=== PATIENT | male | born 1960 | race Caucasian/White ===

== ENCOUNTER → 2017-06-16 16:44 | Outpatient (CLI) | payer OTHER, SELFPAY ==
--- NOTE | 2017-06-16 16:50 | RAD_ITS ---
STUDY: X-RAY - LEFT SHOULDER REASON FOR EXAM: Male, 57 years old. Left shoulder pain. TECHNIQUE: 4 view(s) of the shoulder. COMPARISON: None. FINDINGS: Normal glenohumeral articulation. There is degenerative arthrosis of the acromioclavicular joint without inferior osseous spur formation. Normal acromion. Normal humeral head and visualized proximal humerus. The soft tissue structures are unremarkable. There is no demonstrated fracture. Normal visualized pulmonary apex. RAD/Shoulder min 2 Views IMPRESSION: No acute abnormality. Mild acromioclavicular degenerative disease. Electronically Signed: Prince Gaffney MD at 13:12 EST , Service support ,
== END ==
PROVIDERS: Family Provider Family Medicine; PCP Family Medicine; Visit Provider Anesthesiology Pain Medicine
DX: M25.512 Pain in left shoulder (principal)
CPT/HCPCS: 73030

== ENCOUNTER → 2017-07-26 07:09 | Outpatient (CLI) | payer OTHER, SELFPAY ==
--- NOTE | 2017-07-26 07:10 | MRI_ITS ---
STUDY: MRI LEFT SHOULDER REASON FOR EXAM: Male, 57 years old. Pain TECHNIQUE: Standardized fat and water weighted pulse sequences were obtained in all 3 orthogonal planes. COMPARISON: X-ray 06/16/2017 FINDINGS: There is mild osteoarthritis of the comminuted clavicular joint (image 11/20 coronal proton density fat sat). There is minimal fluid in the subacromion subdeltoid bursa (image 8, 9, 10, 11/20 coronal T2 fat sat). There are mild degenerative changes at the superior posterior glenoid labrum (image 13/22 axial T2, proton density fat sat, 11, 10/20 coronal T2 fat sat). Normal supraspinatus tendon. Normal infraspinatus tendon. Normal subscapularis tendon. Normal teres minor tendon. Normal supraspinatus muscle. Normal infraspinatus muscle. Normal subscapularis muscle. Normal teres minor muscle. Normal glenohumeral articulation. Normal humeral head and visualized proximal humerus. Normal biceps labral complex. Normal intracapsular long biceps tendon. Normal capsulo- ligamentous complex. Normal rotator interval. Normal visualized coracohumeral and coracoacromial ligaments. Normal quadrilateral space. Normal axillary space. Normal deltoid muscle. Normal trapezius muscle. MRI/Upper Ext Joint Only(Routine) IMPRESSION: Mild subacromial subdeltoid bursitis Mild osteoarthritis of the acromioclavicular joint Mild degenerative changes of the glenoid labrum Electronically Signed: Geovany Rose MD at 10:10 EDT Tel , Service support ,
== END ==
PROVIDERS: Family Provider Family Medicine; PCP Family Medicine; Visit Provider Orthopaedic Surgery
DX: M75.102 Unspecified rotator cuff tear or rupture of left shoulder, not specified as traumatic (principal)
CPT/HCPCS: 73221

== ENCOUNTER 2017-08-21 08:24 | Outpatient (RCR) | payer OTHER, SELFPAY ==
--- NOTE | 2017-08-21 09:22 | HP.PTEVAL ---
Patient's Visit Information TWIN BLUNT is a 57 year old M referred to Physical Therapy by Zamzam Simpson DO with a diagnosis of Left Frozen Shoulder. 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 Wasn't able to sleep on the left side. 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 Project at [employer] and has arm was very painful. Called Dr. Brink who did x-rays which was normal- then was diagnosed with frozen shoulder. Did therapy and had mri which was negative for tear. Finished therapy last Friday- will continue bands and ROM independently. Knows exactly what he is looking at but thinks dry needling will help to push him over the edge. PMHx: reflux, Meds: omeprozol - Objective Posture: good throughout session. Palpation: tender along upper trap and levator insertion to the scapula with palpable trigger points. ROM: Cervical: wNL, Shoulder: flexion: 170 degrees, Abd: 165 degrees, IR: belt line, ER: 50 degrees. Elbow: WNL. Strength: 5/5 throughout Scap: fair plus - Goals Goal 1:: Patient will report 0/10 pain Goal Time Frame: 4-6 Weeks - Rehabilitation Potential Physical Therapy Diagnosis: Patient presents with hypomobility- he has decrease ROM, strength and muscular endurance leading to increased pain Rehabilitation Potential: Good - Anticipated Interventions Manual Therapy Techniques to Include: Functional dry needling Thank you for the opportunity to evaluate your patient. For Medicare and Medicare HMO plans, please review the plan of care and approve it. It will need to be FAXED BACK to us at [phone] for Medicare purposes. Please let me know if there are questions or concerns regarding this plan of care. Physician Signature: Date:
--- NOTE | 2018-01-19 16:32 | HP.PT.NRP ---
HP - Discharge Summary (1) - Patient Information TWIN BLUNT was seen in my office for initial evaluation on 08/21/17. The following Plan of Care was established for this patient: Initial Frequency: 1x/Week Initial Duration: 4 Weeks - Anticipated Interventions Manual Therapy Techniques to Include: Functional dry needling This patient was last seen in our office . Pertinent comments regarding their Physical therapy will appear below: Patient has not attended physical therapy in over 12 weeks and is appropriate for d/c. At this point I will be discontinuing this patient from physical therapy. I would be happy to see this patient again in the future if found appropriate by the physician. Thank you! Kaylee Marshall
== END 2017-08-21 19:00 | disposition home or self-care (01) ==
LOC: PT 08:24
PROVIDERS: Family Provider Family Medicine; PCP Family Medicine; Visit Provider Orthopaedic Surgery
DX: M75.02 Adhesive capsulitis of left shoulder (principal); M75.52 Bursitis of left shoulder

== ENCOUNTER → 2017-10-03 14:00 | Outpatient (CLI) | payer OTHER, SELFPAY ==
--- NOTE | 2017-10-03 14:00 | DT_ITS ---
This patient was seen during an EMR downtime September 29, 2017 - October 06, 2017. This patient may have a combination of paper and electronic documentation or all paper documentation. All documentation is viewable within the e-chart portion of [employer] for each patient visit.
--- NOTE | 2017-10-03 14:20 | RAD_ITS ---
STUDY: X-RAY CHEST REASON FOR EXAM: Male, 57 years old. Cough. TECHNIQUE: PA and lateral views of the chest. COMPARISON: None. FINDINGS: The lungs are clear and expanded. There is no demonstrated pleural abnormality. Normal size heart. Normal mediastinum and art. Normal visualized pulmonary arteries. Normal visualized aortic arch and descending thoracic aorta. Normal visualized thoracic spine. Normal visualized ribs, clavicles, and shoulders. There is no demonstrated abnormality of the visualized soft tissue structures of the upper abdomen. RAD/Chest PA and Lateral IMPRESSION: Normal x-ray examination of the chest. Electronically Signed: Ramy Petty MD at 17:42 EDT , Service support ,
== END ==
LOC: MTRAD 14:05 → RAD 14:14
PROVIDERS: Family Provider Family Medicine; PCP Family Medicine; Visit Provider Family Medicine
DX: R05 Cough (principal)
CPT/HCPCS: 71046

== ENCOUNTER → 2018-11-25 09:54 | Outpatient (CLI) | payer OTHER, SELFPAY ==
[2017-06-26 09:12] VITALS: BMI 26.1
--- NOTE | 2018-11-25 10:05 | RAD_ITS ---
STUDY: X-RAY - CERVICAL SPINE REASON FOR EXAM: Male, 58 years old. Pain. Stiffness. TECHNIQUE: 5 view(s) of the cervical spine were obtained. COMPARISON: None. FINDINGS: No acute fracture, dislocation or osseous destruction. Cervical lordosis preserved. No significant scoliosis. Mild neural foraminal narrowing at the mid cervical spine. Atlantoaxial articulation intact. Odontoid intact. Lateral masses well aligned. No significant endplate spondylosis. Intervertebral disc heights preserved. No spondylolisthesis. No significant soft tissue swelling. Normal lung apices. RAD/Cerv Spine 4 or 5 Views IMPRESSION: Cervical spine intact Mild neural foraminal narrowing Electronically Signed: Oleg Dukes DO at 10:18 EDT Tel , Service support ,
[2018-11-25 13:01] LABS: ALB/GLOB Ratio 1.2 RATIO (0.9-2.4); AST(SGOT) 23 U/L (15-37); Alanine Aminotransfer ALT/SGPT 38 U/L (16-61); Albumin, Serum 4.1 g/dL (3.2-5.0); Alkaline Phosphatase 94 U/L (45-117); Anion Gap 5 (5-15); BUN 24 mg/dL (7-18); BUN/Creat Ratio 19.2 RATIO (10-20); Calcium,Total 9.1 mg/dL (8.5-10.1); Chloride 108 mmol/L (98-107); Cholesterol 173 mg/dL (200); Creatinine, Serum 1.25 mg/dL (0.70-1.30); EST Glomerular Filtration Rate 63 mL/min (>60); Est Glom Filt Rate - Afr Amer 76 mL/min (>60); Globulin 3.4 g/dL (2.2-4.2); Glucose 88 mg/dL (74-106); High Density Lipoprotein 62 mg/dL; Potassium 4.2 mmol/L (3.5-5.1); Protein, Total 7.5 g/dL (6.4-8.2); Sodium Level 141 mmol/L (136-145); Triglycerides 96 mg/dL; Very Low Density Lipoprotein 19 mg/dL (5-40)
== END ==
PROVIDERS: Family Provider Family Medicine; PCP Family Medicine; Referring Provider Nurse Practitioner Family; Visit Provider Nurse Practitioner Family
DX: M54.2 Cervicalgia (principal); Z13.220 Encounter for screening for lipoid disorders
CPT/HCPCS: 36415; 72050; 80053; 80061

== ENCOUNTER 2018-12-09 07:49 | Outpatient (RCR) | payer OTHER, SELFPAY ==
--- NOTE | 2018-12-09 08:39 | HP.PTEVAL_ITS ---
Patient's Visit Information TWIN BLUNT is a 58 year old M referred to Physical Therapy by LISA Sosa with a diagnosis of Neck Pain. Date of Evaluation: 12/09/18 Physical Therapist: Kaylee Marshall DPT - Visit Plan Frequency: 1x/Week Duration: 1 Week Plan: Patient was given HEP of Upper Trap Stretching, Levator Stretching, Scalenes Stretching- encouraged to continue I and call if questions or concerns. - Subjective Findings: 6 weeks ago he noticed a rubber band stretching into the back of his head. He plays a lot of golf and thought that was what it was. It seems to have settled into the neck itself. Then started to get sore more in the gland area and it was changing- so he went to the MD to get checked out. Went to PCP who gave him a physical exam and told him it was his SCM issues. He had an x- ray which showed slight narrowing. 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 He has discomfort and stretch/pull on the right hand side when he turns to the left. He finished the Predisone and takes a Flexeril before bed. Had blood work as well and that came back normal. Worst: 2-3/10 just when he turns to the left reports its a pull sensation. No N/T in the arms. Most of the time he is painfree. Sleep is not distrubed- left side due to reflux. 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 Golf- right hand dominate. looks to the left when he pulls through. Little more stress through the last few months but no major life trauma. He went through a left frozen shoulder last year and he gets knots in his scapula. When that knot gets worse when he is more stressed. No LUCIANO, blurred vision, dizziness. PMHx: none Meds: Flexeril PRN, omperazol. - Objective Posture: good throughout session. Palpation: tender along upper trap and cervical paraspinals on the right. Increased trigger points throughout scapula along medial border. ROM: Finger/Wrist/Elbow/Hand: WNL. Cervical: flexion: chin to chest, Extn: diminished by 25%, Rotation to the left: diminished by 10% with discomfort at end range, Rotation right: WNL, SB bilateral: WNL. Strength: UE: 5/5 bilaterally Scap: fair plus, Cervical: 5/5. Flex: UT: moderate, Levator: moderate. Sensation: WNL. Special Test: distraction: no change in s/s - Goals Goal 1:: Patient will be I with HEP Goal Time Frame: 1 Week - Rehabilitation Potential Physical Therapy Diagnosis: Patient presents with increased muscle tightness of the left cervical spine leading to increased pain with trurning his head to the left. Rehabilitation Potential: Excellent - Anticipated Interventions Patient/Client Instruction: Educate patient on: Benefits of Fitness Program Therapeutic Exercise to Include: Body mechanics, Postural training, Flexibilty training For the Purpose of:: To improve muscle performance and motor function Thank you for the opportunity to evaluate your patient. For Medicare and Medicare HMO plans, please review the plan of care and approve it. It will need to be FAXED BACK to us at [phone] for Medicare purposes. For Medicare only, by signing this I certify the plan of care. Please let me know if there are questions or concerns regarding this plan of care. Physician Signature: Date:
--- NOTE | 2019-01-05 11:23 | HP.PT.NRP ---
HP - Discharge Summary (1) - Patient Information TWIN BLUNT was seen in my office for initial evaluation on 12/09/18. The following Plan of Care was established for this patient: Initial Frequency: 1x/Week Initial Duration: 1 Week - Anticipated Interventions Patient/Client Instruction: Educate patient on: Benefits of Fitness Program Therapeutic Exercise to Include: Body mechanics, Postural training, Flexibilty training For the Purpose of:: To improve muscle performance and motor function This patient was last seen in our office . Pertinent comments regarding their Physical therapy will appear below: At this point I will be discontinuing this patient from physical therapy. I would be happy to see this patient again in the future if found appropriate by the physician. Thank you! JULIANO BatistaT
== END 2018-12-09 19:00 | disposition home or self-care (01) ==
LOC: PT 07:49
PROVIDERS: Family Provider Family Medicine; PCP Family Medicine; Referring Provider Nurse Practitioner Family; Visit Provider Nurse Practitioner Family
DX: M54.2 Cervicalgia (principal)
CPT/HCPCS: 97110; 97161

== ENCOUNTER → 2019-09-03 09:48 | Outpatient (CLI) | payer OTHER, SELFPAY ==
--- NOTE | 2019-09-03 09:54 | US_ITS ---
STUDY: THYROID ULTRASOUND REASON FOR EXAM: Male, 59 years old. PALP LUMP ON RT NECK-THYROID NODULE VERSES ADENOPATHY TECHNIQUE: Ultrasound evaluation of the thyroid was performed with real-time and static calderón-scale imaging. COMPARISON: None. FINDINGS: RIGHT LOBE: The right lobe of the thyroid gland is enlarged and measures 5.2 cm x 1.7 cm x 1.9 cm. There is a homogeneous echotexture. There is an 8 mm x 7 mm x 7 mm solid hypoechoic nodule in the lower pole of the right lobe. LEFT LOBE: The left lobe of the thyroid gland is enlarged and measures 5.9 cm x 2.9 cm x 2.6 cm. There is a homogeneous echotexture. 3 hypoechoic solid nodules are seen in the right lobe. The largest measures 3.3 cm x 2.8 cm x 1.7 cm. A biopsy is recommended for further evaluation. ISTHMUS: The isthmus measures 4 mm. There is a 1.8 cm x 1.1 cm x 0.5 cm benign-appearing lymph node in the right side of the neck. This corresponds to the palpable abnormality. US/Thyroid IMPRESSION: Enlargement of both lobes of the thyroid. Bilateral solid nodules. Dominant nodule in the left lobe measuring 3.3 cm x 2.8 cm by 1.7 cm. A biopsy is recommended for further evaluation. The palpable abnormality in the right subapical region corresponds to a 1.8 cm x 1.1 cm x 0.5 cm benign appearing lymph node. Electronically Signed: Bernabe Floyd, at 10:49 EDT , Service support ,
== END ==
PROVIDERS: PCP Family Medicine; Referring Provider Family Medicine; Visit Provider Family Medicine
DX: R22.1 Localized swelling, mass and lump, neck (principal)
CPT/HCPCS: 76536

== ENCOUNTER → 2019-09-06 14:30 | Outpatient (CLI) | payer OTHER, SELFPAY ==
--- NOTE | 2019-09-06 | FLU_PTH ---
PATIENT: TWIN BLUNT LOC: [facility] U#:[id number] AGE/SX: 65/M ROOM: RE09/06/[address]: Dr. Oleg Rivera MD : 1960 BED: DIS: SPEC #: [id number] RECD: 09/06/19 17:30 STATUS: CAROLYN ERICH #: [id number] KRISTI: 09/06/19 00:[address]: Oleg Rivera DEPT: CYTOLOGY RECD BY: Jose Antunez ENTERED: 09/07/19 08:42 SP TYPE: Fluid OTHR DR: Dr. Gato Holman DO Tissues: Thyroid gland, NOS Procedures: Special Stain Group II Surgery Specimen Level IV Cytospin Fluid HEADER OPERATION: Fine needle aspiration PRE-OP DIAGNOSIS: Nontoxic multinodular goiter TISSUE SUBMITTED: Right thyroid nodule aspiration for cytology DIAGNOSIS CYTOLOGY Right thyroid nodule, FNA (cytospin and cell block): Consistent with benign follicular nodule. Adequate for evaluation. See comment. SVITLANA:keo 09/08/19 COMMENT Correlation with clinical, radiologic findings and appropriate follow up are necessary. CYTOLOGY STUDY Slides are reviewed. CYTOLOGY GROSS Received is 35 ml of red bloody fluid labeled with the patient's name and and designated per the requisition as right thyroid nodule. Submitted for cytology preparation including cell block. / keo 09/07/19 TC:5 CPT: 25485, 05407
== END ==
PROVIDERS: PCP Family Medicine; Referring Provider Otolaryngology; Visit Provider Otolaryngology
DX: E04.2 Nontoxic multinodular goiter (principal)
CPT/HCPCS: 88108; 88305; 88313

== ENCOUNTER → 2021-01-24 09:49 | Outpatient (CLI) | payer OTHER, SELFPAY ==
--- NOTE | 2021-01-24 09:53 | US_ITS ---
STUDY: THYROID ULTRASOUND REASON FOR EXAM: Male, 60 years old. Nontoxic multinodular goiter. TECHNIQUE: Ultrasound evaluation of the thyroid was performed with real-time and static calderón-scale imaging. COMPARISON: Comparison is made with prior examination dated 09/03/2019. FINDINGS: RIGHT LOBE: The right lobe of the thyroid gland is enlarged and measures 5.4 cm x 1.3 cm x 1.6 cm. There is a homogeneous echotexture. 4 small hypoechoic and cystic nodules are seen in the right lobe. The largest measures 1.2 cm x 0.8 times by 1 cm. This is within the mid pole. 2 nodules are also seen in the lower pole of the right lobe. The larger measuring 1.2 cm x 1 cm x 0.7 cm. LEFT LOBE: The left lobe of the thyroid gland is enlarged and measures 5.5 cm x 3.3 cm x 2.7 cm. There is a homogeneous echotexture. A dominant solid and cystic nodule measuring 3.2 cm x 2.7 cm x 2.1 cm is seen in the midpole. This is essentially unchanged. Also evidence of a 2.5 cm x 2.1 cm x 1.7 cm complex solid and cystic nodule in the mid inferior pole of the left lobe. There is also evidence of a 1.8 cm x 1.9 cm x 1.5 cm complex nodule in the lower pole. ISTHMUS: The isthmus measures 2.3 mm. The regional lymph nodes are normal. US/Thyroid IMPRESSION: Enlarged thyroid. Stable bilateral nodular densities suggestive of nontoxic multinodular goiter. Electronically Signed: Bernabe Floyd MD at 12:19 EDT , Service support ,
== END ==
PROVIDERS: PCP Family Medicine; Referring Provider Otolaryngology; Visit Provider Otolaryngology
DX: E04.2 Nontoxic multinodular goiter (principal)
CPT/HCPCS: 76536

== ENCOUNTER → 2022-06-20 | Outpatient (CLI) | payer OTHER, SELFPAY ==
[2022-06-20 12:03] LABS: Color, Urine Yellow (Yellow); Glucose, Dipstick Normal (Normal); Ketone-Dipstick Negative (Negative); Leukocyte Esterase-Dipstick Negative /ul (Negative); Nitrite-Dipstick Negative (Negative); Occult Blood-Urine Negative /ul (Negative); Protein-Dipstick Negative (Negative); Urine Bilirubin Dipstick Negative (Negative); Urine Clarity Sl. Cloudy (Clear); Urine Urobilinogen Normal (Normal)
[2022-06-20 12:39] LABS: ALB/GLOB Ratio 1.1 RATIO (0.9-2.4); AST(SGOT) 28 U/L (15-37); Alanine Aminotransfer ALT/SGPT 35 U/L (16-61); Albumin, Serum 3.9 g/dL (3.2-5.0); Alkaline Phosphatase 83 U/L (45-117); Anion Gap 5 (5-15); BUN 21 mg/dL (7-18); BUN/Creat Ratio 14.7 RATIO (10-20); Calcium,Total 9.1 mg/dL (8.5-10.1); Chloride 107 mmol/L (98-107); Cholesterol 158 mg/dL (200); Creatinine, Serum 1.43 mg/dL (0.70-1.30); EST Glomerular Filtration Rate 53 mL/min (>60); Est Glom Filt Rate - Afr Amer 65 mL/min (>60); Globulin 3.5 g/dL (2.2-4.2); Glucose 98 mg/dL (74-106); High Density Lipoprotein 64 mg/dL; PSA,Total - Annual Screen 0.69 ng/mL (0.00-4.00); Potassium 4.2 mmol/L (3.5-5.1); Protein, Total 7.4 g/dL (6.4-8.2); Sodium Level 140 mmol/L (136-145); Thyroid Stim Hormone (TSH) 1.52 uIU/mL (0.358-3.74); Triglycerides 54 mg/dL; Very Low Density Lipoprotein 11 mg/dL (5-40)
[2022-06-20 12:51] LABS: Absolute Lymphocyte Count 1.48 X10^3/uL (0.83-4.51); Basophil# 0.06 X10^3/uL; Basophil% 1.1 % (0-1); Eosinophil# 0.17 X10^3/uL; Eosinophils% 3.2 % (0-5); Hematocrit 46.4 % (40-54); Hemoglobin 14.6 g/dL (13.0-16.5); Lymphocyte # 1.48 X10^3/ul (0.83-4.51); Mean Corp Hgb Conc 31.5 g/dL (32-36); Mean Corpuscular Hgb 29.6 pg (27.0-32.0); Mean Corpuscular Volume 94.1 fL (80-94); Mean Platelet Vol. 9.6 fl (6.2-12.0); Monocyte# 0.53 X10^3/uL; NRBC Flagged by Analyzer 0 % (0-5); Neutrophil # 3.04 X10^3/uL (2.7-7.7); Neutrophil % 57.5 % (47-70); Platelet Count 304 K/mm3 (150-450); RBC Distribution Width CV 13.1 % (11.6-14.6); RBC Distribution Width SD 45.2 fl (35.1-43.9); Red Blood Count 4.93 M/mm3 (4.6-6.2); White Blood Count 5.3 K/mm3 (4.4-11.0)
== END | disposition home or self-care (01) ==
LOC: BFHLAB 08:33
PROVIDERS: PCP Family Medicine; Visit Provider Family Medicine
DX: Z00.00 Encounter for general adult medical examination without abnormal findings (principal); Z12.5 Encounter for screening for malignant neoplasm of prostate; E04.2 Nontoxic multinodular goiter
CPT/HCPCS: 36415; 80053; 80061; 81002; 84153; 84443; 85025; G0103

== ENCOUNTER → 2022-07-25 | Outpatient (CLI) | payer OTHER, SELFPAY ==
--- NOTE | 2022-07-25 07:42 | ECHOD_ITS ---
Reason For Study: PVCs Procedure This was a 2D Doppler, Color Flow transthoracic echocardiogram. Exam performed in department. Left Ventricle Normal LV size. The estimated ejection fraction is 55 %. Normal diastology for age. No regional wall motion abnormalities noted. Right Ventricle Normal RV size. Normal systolic function. Atria Normal left atrium. Normal right atrium. No doppler evidence for ASD. Mitral Valve There is no mitral valve stenosis. Mild (1+) mitral valve insufficiency. Tricuspid Valve There is no tricuspid stenosis. Trivial tricuspid valve insufficiency. Unable to estimate RV systolic pressure due to insufficient tricuspid regurgitant envelope. Aortic Valve Trisinus/trileaflet aortic valve. There is no aortic stenosis. No aortic valve insufficiency. Pulmonic Valve There is no pulmonic valvular stenosis. No pulmonic valve insufficiency. Great Vessels Normal aortic root. Pericardium/Pleural No pericardial effusion. MMode/2D Measurements & Calculations LVIDd: 5.5 cm IVSd: 0.97 cm Ao root diam: 3.3 cm LVIDs: 3.8 cm LVPWd: 0.97 cm RVDd: 2.8 cm FS: 30.0 % LAV(MOD-bp): 69.1 ml LVAd ap4: 33.3 cm2 LVAd ap2: 29.1 cm2 LAV(MOD-bp) Indexed: 34.4 ml/m2 LVLd ap4: 8.4 cm LVLd ap2: 8.0 cm LAV(MOD-sp2): 64.8 ml EDV(MOD-sp4): 107.7 ml EDV(MOD-sp2): 93.3 ml LAV(MOD-sp4): 64.2 ml EDV(sp4-el): 111.5 ml EDV(sp2-el): 90.2 ml LVAs ap4: 15.9 cm2 LVAs ap2: 16.3 cm2 LVLs ap4: 6.9 cm LVLs ap2: 7.0 cm ESV(MOD-sp4): 35.5 ml ESV(MOD-sp2): 33.8 ml ESV(sp4-el): 31.3 ml ESV(sp2-el): 32.4 ml EF(MOD-sp4): 67.0 % EF(MOD-sp2): 63.8 % EF(sp4-el): 71.9 % SV(MOD-sp4): 72.2 ml SV(MOD-sp2): 59.5 ml SV(sp4-el): 80.2 ml LA dimension(2D): 3.6 cm LA A4 area: 21.5 cm2 RA A4 area: 17.5 cm2 Time Measurements MV dec time: 0.27 sec Doppler Measurements & Calculations MV E max cliff: 49.2 cm/sec Lat Peak E' Cliff: 13.8 cm/sec Med Peak E' Cliff: 10.7 cm/sec MV A max cliff: 58.8 cm/sec E/E' lat: 3.6 E/E' med: 4.6 MV E/A: 0.84 Ao V2 max: 139.8 cm/sec LV V1 max: 109.1 cm/sec PA V2 max: 93.2 cm/sec Ao max P.8 mmHg LV V1 max P.8 mmHg Ao V2 mean: 106.8 cm/sec LV V1 mean P.6 mmHg Ao mean P.0 mmHg LV V1 mean: 75.1 cm/sec Ao V2 VTI: 31.1 cm LV V1 VTI: 22.5 cm AV (velocity ratio): 0.73 ECHO/Echo Complete Interpretation Summary The estimated ejection fraction is 55 %. Mild (1+) mitral valve insufficiency. Ordering Physician: Gato Holman Referring Physician: Gato Holman Performed By: Ramona Timmons, RDCS, RVT
== END | disposition home or self-care (01) ==
LOC: CVS 07:41
PROVIDERS: PCP Family Medicine; Referring Provider Family Medicine; Visit Provider Family Medicine
DX: R00.2 Palpitations (principal); I49.3 Ventricular premature depolarization
CPT/HCPCS: 93306

== ENCOUNTER → 2023-11-21 | Outpatient (CLI) | payer OTHER, SELFPAY ==
[2023-11-21 10:08] LABS: Absolute Lymphocyte Count 1.61 X10^3/uL (0.83-4.51); Absolute Neutrophil Count 2.4 X10^3/uL (2.0-7.7); Basophil# 0.07 X10^3/uL; Basophil% 1.4 % (0-1); Eosinophil# 0.22 X10^3/uL; Eosinophils% 4.5 % (0-5); Hematocrit 43.2 % (40-54); Hemoglobin 13.9 g/dL (13.0-16.5); Lymphocyte # 1.61 X10^3/ul (0.83-4.51); Lymphocyte % 33.2 % (19-41); Mean Corp Hgb Conc 32.2 g/dL (32-36); Mean Corpuscular Hgb 30.4 pg (27.0-32.0); Mean Corpuscular Volume 94.5 fL (80-94); Mean Platelet Vol. 9.2 fl (6.2-12.0); Monocyte# 0.54 X10^3/uL; Monocyte% 11.1 % (0-10); NRBC Flagged by Analyzer 0 % (0-5); Neutrophil % 49.6 % (47-70); Platelet Count 223 K/mm3 (150-450); RBC Distribution Width CV 13.3 % (11.6-14.6); RBC Distribution Width SD 46.5 fl (35.1-43.9); Red Blood Count 4.57 M/mm3 (4.6-6.2); White Blood Count 4.9 K/mm3 (4.4-11.0)
[2023-11-21 10:47] LABS: ALB/GLOB Ratio 1.3 RATIO (0.9-2.4); AST(SGOT) 20 U/L (15-37); Alanine Aminotransfer ALT/SGPT 24 U/L (16-61); Albumin, Serum 3.8 g/dL (3.2-5.0); Alkaline Phosphatase 70 U/L (45-117); Anion Gap 4 (5-15); BUN 22 mg/dL (7-18); Calcium,Total 8.8 mg/dL (8.5-10.1); Chloride 108 mmol/L (98-107); Cholesterol 171 mg/dL (200); Creatinine, Serum 1.22 mg/dL (0.70-1.30); EST Glomerular Filtration Rate 64 mL/min (>60); Est Glom Filt Rate - Afr Amer 77 mL/min (>60); Glucose 89 mg/dL (74-106); High Density Lipoprotein 80 mg/dL; Protein, Total 6.8 g/dL (6.4-8.2); Sodium Level 141 mmol/L (136-145); Triglycerides 68 mg/dL; Very Low Density Lipoprotein 14 mg/dL (5-40)
== END | disposition home or self-care (01) ==
LOC: MTLAB 08:01
PROVIDERS: PCP Family Medicine; Referring Provider Family Medicine; Visit Provider Family Medicine
DX: Z00.00 Encounter for general adult medical examination without abnormal findings (principal); Z12.5 Encounter for screening for malignant neoplasm of prostate
CPT/HCPCS: 36415; 80053; 80061; 84153; 85025; G0103

== ENCOUNTER → 2024-11-10 | Outpatient (CLI) | payer OTHER, SELFPAY ==
--- OUTSIDE RECORDS SUMMARY | 2024-11-10 09:18 | XMS RPT_ITS | CCD ---
Author Organization [facility] ion Partnership [facility] Care Team Providers Care Storage Consultant Name Role Phone MARIO SLAUGHTER Unavailable Unavailab MARIO Rodriguez Unavailable Unavailab LEV Wilson Unavailable Unavailable Dr. Gato Holman Primary Care Provider Dr. Lourdes Luong Attending Provider [phone] Gato Holman Referring Unavailable Gato Holman Attending Unavailable Gato Holman Primary Care Unavailable Gato Holman Attending Unavailable Gato Holman Primary Care Unavailable Medications Current Medications Medication Drug Class(es) Dates Sig (Normalized) Sig (Original) chondroitin sulfates 200 mg / glucosamine hydrochloride 250 mg oral tablet (2 sources) Start: 06-26-2017 take 2 tablets by mouth after mealtime glucosamine-chond roitin 250 mg-200 mg tablet Active 2 TABLET PO after meals June 26, 2017 1:00am omeprazole 20 mg delayed release oral capsule (2 sources) Proton Pump Inhibitor Start: 06-26-2017 take 20 mg by mouth twice daily Omeprazole Active 20 MG PO TWICE A DAY June 26, 2017 1:00am vitamins A,C,and E-selenium capsule (2 sources) Start: 06-26-2017 take 1 capsule by mouth once daily vitamins A,C,and E-selenium capsule Active 1 CAP PO daily June 26, 2017 1:00am Start: 06-26-2017 take 1 capsule by [facility] once daily vitamins A,C,and E-selenium capsule Active 1 CAP PO daily June 26, 2017 12:00am Results Test Name Value Interpretation Reference Range Facility CBC W/Diff, Automatedon 07-2 Absolute Lymph 1.61 X10 3/uL Normal 0.83-4.51 [facility] Comment on above: Performed By: #### L 500.4100, L500.4050, L501.9910, L100.0100 #### [facility] [address] [place], [address] Absolute Neut 2.4 X10 3/uL Normal 2.0-7.7 [facility] Comment on above: Performed By: #### L 500.4100, L500.4050, L501.9910, L100.0100 #### [facility] [address] [place], [address] Basophils/100 WBC (Bld) 1.4 % High 0-1 [facility] Comment on above: Performed By: #### L 500.4100, L500.4050, L501.9910, L100.0100 #### [facility] [address] [place], [address] Eosinophils/100 WBC (Bld) 4.5 % Normal 0-5 [facility] Comment on above: Performed By: #### L 500.4100, L500.4050, L501.9910, L100.0100 #### [facility] [address] [place], [address] Erythrocyte distribution width (RBC) [Ratio] 13.3 % Normal 11.6-14.6 [facility] Comment on above: Performed By: #### L 500.4100, L500.4050, L501.9910, L100.0100 #### [facility] [address] [place], [address] Hematocrit (Bld) [Volume fraction] 43.2 % Normal 40-54 [facility] Comment on above: Performed By: #### L 500.4100, L500.4050, L501.9910, L100.0100 #### [facility] [address] [place], [address] Hemoglobin (Bld) [Mass/Vol] 13.9 g/dL Normal 13.0-16.5 [facility] Comment on above: Performed By: #### L 500.4100, L500.4050, L501.9910, L100.0100 #### [facility] [address] [place], [address] IG% 0.200 Normal 0.0-0.9 [facility] Comment on above: Result Comment: IG% - Immature Granulocytes (promyelocytes, myelocytes and metamyelocytes) > 1% indicates that a LEFT SHIFT is Present. Performed By: #### L 500.4100, L500.4050, L501.9910, L100.0100 #### [facility] [address] [place], [address] Lymphocytes/100 WBC (Bld) 33.2 % Normal 19-41 [facility] Comment on above: Performed By: #### L 500.4100, L500.4050, L501.9910, L100.0100 #### [facility] [address] [place], [address] MCH (RBC) [Entitic mass] 30.4 pg Normal 27.0-32.0 [facility] Comment on above: Performed By: #### L 500.4100, L500.4050, L501.9910, L100.0100 #### [facility] [address] [place], [address] MCHC (RBC) [Mass/Vol] 32.2 g/dL Normal 32-36 [facility] Comment on above: Performed By: #### L 500.4100, L500.4050, L501.9910, L100.0100 #### [facility] [address] [place], [address] MCV (RBC) [Entitic vol] 94.5 fL High 80-94 [facility] Comment on above: Performed By: #### L 500.4100, L500.4050, L501.9910, L100.0100 #### [facility] [address] [place], [address] Monocytes/100 WBC (Bld) 11.1 % High 0-10 [facility] Comment on above: Performed By: #### L 500.4100, L500.4050, L501.9910, L100.0100 #### [facility] [address] [place], [address] Neutrophils/100 WBC (Bld) 49.6 % Normal 47-70 [facility] Comment on above: Performed By: #### L 500.4100, L500.4050, L501.9910, L100.0100 #### [facility] [address] [place], [address] Nucleated RBC (Bld) [#/Vol] 0 10*3/uL Normal 0-5 [facility] Comment on above: Performed By: #### L 500.4100, L500.4050, L501.9910, L100.0100 #### [facility] [address] [place], [address] Platelet mean volume (Bld) [Entitic vol] 9.2 fL Normal 6.2-12.0 [facility] Comment on above: Performed By: #### L 500.4100, L500.4050, L501.9910, L100.0100 #### [facility] [address] [place], [address] Platelets (Bld) [#/Vol] 223 10*3/uL Normal 150-450 [facility] Comment on above: Performed By: #### L 500.4100, L500.4050, L501.9910, L100.0100 #### [facility] [address] [place], [address] RBC (Bld) [#/Vol] 4.57 10*6/uL Low 4.6-6.2 [facility] Comment on above: Performed By: #### L 500.4100, L500.4050, L501.9910, L100.0100 #### [facility] [address] [place], [address] RDW SD 46.5 fl High 35.1-43.9 [facility] Comment on above: Performed By: #### L 500.4100, L500.4050, L501.9910, L100.0100 #### [facility] [address] [place], [address] WBC (Bld) [#/Vol] 4.9 10*3/uL Normal 4.4-11.0 [facility] Comment on above: Performed By: #### L 500.4100, L500.4050, L501.9910, L100.0100 #### [facility] [address] [place], [address] Comprehensive Metabolic Prof [facility] 11-21-2023 Albumin [Mass/Vol] 3.8 g/dL Normal 3.2-5.0 [facility] Comment on above: Performed By: #### L 500.4100, L500.4050, L501.9910, L100.0100 #### [facility] [address] [place], [address] Albumin/Globulin [Mass ratio] 1.3 {ratio} Normal 0.9-2.4 [facility] Comment on above: Performed By: #### L 500.4100, L500.4050, L501.9910, L100.0100 #### [facility] [address] [place], [address] ALK P 70 U/L Normal 45-117 [facility] Comment on above: Performed By: #### L 500.4100, L500.4050, L501.9910, L100.0100 #### [facility] [address] [place], [address] ALT [Catalytic activity/Vol] 24 U/L Normal 16-61 [facility] Comment on above: Performed By: #### L 500.4100, L500.4050, L501.9910, L100.0100 #### [facility] [address] [place], [address] AST [Catalytic activity/Vol] 20 U/L Normal 15-37 [facility] Comment on above: Performed By: #### L 500.4100, L500.4050, L501.9910, L100.0100 #### [facility] [address] [place], [address] Bilirubin [Mass/Vol] 0.70 mg/dL Normal 0.20-1.00 [facility] Comment on above: Result Comment: For patients on eltrombopag therapy, use of Dimension Jackson TBIL is not recommended. Performed By: #### L 500.4100, L500.4050, L501.9910, L100.0100 #### [facility] [address] [place], [address] BUN/CRE 18.0 RATIO Normal 10-20 [facility] Comment on above: Performed By: #### L 500.4100, L500.4050, L501.9910, L100.0100 #### [facility] [address] [place], [address] CA,Total 8.8 mg/dL Normal 8.5-10.1 [facility] Comment on above: Performed By: #### L 500.4100, L500.4050, L501.9910, L100.0100 #### [facility] [address] [place], [address] Chloride [Moles/Vol] 108 mmol/L High 98-107 [facility] Comment on above: Performed By: #### L 500.4100, L500.4050, L501.9910, L100.0100 #### [facility] [address] [place], [address] CO2 [Moles/Vol] 29.0 mmol/L Normal 21.0-32.0 [facility] Comment on above: Performed By: #### L 500.4100, L500.4050, L501.9910, L100.0100 #### [facility] [address] [place], [address] Creatinine [Mass/Vol] 1.22 mg/dL Normal 0.70-1.30 [facility] Comment on above: Result Comment: The validity of the calculated GFR GFRAA in patients over 70 years has not been determined. Clinical correlation is essential. Performed By: #### L 500.4100, L500.4050, L501.9910, L100.0100 #### [facility] [address] [place], [address] EST GFR - AA 77 mL/min Normal >60 [facility] Comment on above: Result Comment: Afri can Ethiopian GFR Calc Performed By: #### L 500.4100, L500.4050, L501.9910, L100.0100 #### [facility] [address] [place], [address] GAP 4 Low 5-15 [facility] Comment on above: Performed By: #### L 500.4100, L500.4050, L501.9910, L100.0100 #### [facility] [address] [place], [address] GFR/1.73 sq M.predicted among non-blacks MDRD (S/P/Bld) [Vol rate/Area] 64 mL/min/{1.73_m2} Normal >60 [facility] Comment on above: Result Comment: Non- GFR Calc Performed By: #### L 500.4100, L500.4050, L501.9910, L100.0100 #### [facility] [address] [place], [address] Globulin (S) [Mass/Vol] 3.0 g/dL Normal 2.2-4.2 [facility] Comment on above: Performed By: #### L 500.4100, L500.4050, L501.9910, L100.0100 #### [facility] [address] [place], [address] Glucose [Mass/Vol] 89 mg/dL Normal 74-106 [facility] Comment on above: Performed By: #### L 500.4100, L500.4050, L501.9910, L100.0100 #### [facility] [address] [place], [address] Potassium [Moles/Vol] 4.0 mmol/L Normal 3.5-5.1 [facility] Comment on above: Performed By: #### L 500.4100, L500.4050, L501.9910, L100.0100 #### [facility] [address] [place], [address] Sodium [Moles/Vol] 141 mmol/L Normal 136-145 [facility] Comment on above: Performed By: #### L 500.4100, L500.4050, L501.9910, L100.0100 #### [facility] [address] [place], [address] T PROT 6.8 g/dL Normal 6.4-8.2 [facility] Comment on above: Performed By: #### L 500.4100, L500.4050, L501.9910, L100.0100 #### [facility] [address] [place], [address] Urea nitrogen [Mass/Vol] 22 mg/dL High 7-18 [facility] Comment on above: Performed By: #### L 500.4100, L500.4050, L501.9910, L100.0100 #### [facility] [address] [place], [address] Lipid Profileon 11-21-2023 Cholesterol [Mass/Vol] 171 mg/dL Normal 200 [facility] Comment on above: Result Comment: <200 mg/dL Desirable 200-240 mg/dL Borderline >240 mg/dL High Risk Performed By: #### L 500.4100, L500.4050, L501.9910, L100.0100 #### [facility] [address] [place], [address] Cholesterol in HDL [Mass/Vol] 80 mg/dL Normal [facility] Comment on above: Result Comment: The drugs N-Acetylcysteine and Metamizole may falsely depress this assay. Reference Range HDL <40 mg/dL Low HDL Cholesterol HDL >or= 60 mg/dL High HDL Cholesterol Performed By: #### L 500.4100, L500.4050, L501.9910, L100.0100 #### [facility] [address] [place], [address] Cholesterol in LDL [Mass/Vol] 77 mg/dL Normal 0-130 [facility] Comment on above: Performed By: #### L 500.4100, L500.4050, L501.9910, L100.0100 #### [facility] [address] [place], [address] Cholesterol in VLDL [Mass/Vol] 14 mg/dL Normal 5-40 [facility] Comment on above: Performed By: #### L 500.4100, L500.4050, L501.9910, L100.0100 #### [facility] [address] [place], [address] Triglyceride [Mass/Vol] 68 mg/dL Normal [facility] Comment on above: Result Comment: The drugs N-Acetylcysteine and Metamizole may falsely depress this assay. Serum Triglycerides Reference Interval Normal <150 mg/dL Borderline high 150 - 199 mg/dL High 200 - 499 mg/dL Very High > or = 500 mg/dL Performed By: #### L 500.4100, L500.4050, L501.9910, L100.0100 #### [facility] [address] [place], [address] PSA,Total - Annual Screenon 11-21-2023 PSA,TOT SCREEN 0.60 ng/mL Normal 0.00-4.00 [facility] Comment on above: Result Comment: This test was performed using the TPSA assay method for the flux - neutrinity chemistry system. Values obtained with different assay methods cannot be used interchangably. When changing PSA assays in the course of monitoring a patient, additional sequential testing should be carried out to confirm baseline values. Performed By: #### L 500.4100, L500.4050, L501.9910, L100.0100 #### [facility] [address] [place], [address] Absolute lymphocyte countOrd ered By: Dr. Holman on 06-20-2022 Lymphocytes Auto (Unsp spec) [#/Vol] 1.48 10*3/uL 0.83-4.51 [facility] Basophil percentageOrdered B y: Dr. Holman on 06-20-2022 Basophils/100 WBC (Bld) 1.1 % 0-1 [facility] Bilirubin [Mass/Vol] 0.60 mg/dL 0.20-1.00 [facility] Comment on above: For patients on eltr ombopag therapy, use of Dimension Jackson TBIL is not recommended. Chloride [Moles/Vol] 107 mmol/L 98-107 [facility] Cholesterol [Mass/Vol] 158 mg/dL <200 [facility] Comment on above: <200 mg/dL Desirable 200-240 mg/dL Borderline >240 mg/dL High Risk Eosinophils/100 WBC (Bld) 3.2 % 0-5 [facility] Glucose [Mass/Vol] 98 mg/dL 74-106 [facility] Neutrophils (Bld) [#/Vol] 3.0 10*3/uL 2.0-7.7 [facility] Neutrophils/100 WBC (Bld) 57.5 % 47-70 [facility] Potassium [Moles/Vol] 4.2 mmol/L 3.5-5.1 [facility] Protein [Mass/Vol] 7.4 g/dL 6.4-8.2 [facility] Sodium [Moles/Vol] 140 mmol/L 136-145 [facility] Triglyceride [Mass/Vol] 54 mg/dL <199 [facility] Comment on above: The drugs N-Acetylcy steine and Metamizole may falsely depress this assay.Serum Triglycerides Reference Interval Normal <150 mg/dL Borderline high 150 - 199 mg/dL High 200 - 499 mg/dL Very High > or = 500 mg/dL WBC (Bld) [#/Vol] 5.3 10*3/uL 4.4-11.0 [facility] Bilirubin Test strip Ql (U)O rdered By: Dr. Holman on 06-20-2022 Bilirubin Ql (U) Negative Negative [facility] Blood erythrocytes count (nu mber/volume)Ordered By: Dr. Holman on 06-20-2022 RBC (Bld) [#/Vol] 4.93 10*6/uL 4.6-6.2 [facility] Blood hemoglobin measurement (mass/volume)Ordered By: Dr. Holman on 06-20-2022 Hemoglobin (Bld) [Mass/Vol] 14.6 g/dL 13.0-16.5 [facility] Blood lymphocytes/100 leukoc ytesOrdered By: Dr. Holman on 06-20-2022 Lymphocytes/100 WBC (Bld) 28.0 % 19-41 [facility] Blood monocytes/100 leukocyt esOrdered By: Dr. Holman on 06-20-2022 Monocytes/100 WBC (Bld) 10.0 % 0-10 [facility] Blood platelet mean volumeOr dered By: Dr. Holman on 06-20-2022 Platelet mean volume (Bld) [Entitic vol] 9.6 fL 6.2-12.0 [facility] Determination of erythrocyte mean corpuscular volume (MCV)Ordered By: Dr. Holman on 06-20-2022 MCV (RBC) [Entitic vol] 94.1 fL 80-94 [facility] Hematocrit Auto (Bld) [Volum e fraction]Ordered By: Dr. Holman on 06-20-2022 Hematocrit (Bld) [Volume fraction] 46.4 % 40-54 [facility] Ketones Test strip Ql (U)Ord ered By: Dr. Holman on 06-20-2022 Ketones Ql (U) Negative Negative [facility] Laboratory - Chemistry and C hemistry - challengeOrdered By: Dr. Holman on 06-20-2022 ALP [Catalytic activity/Vol] 83 U/L 45-117 [facility] ALT [Catalytic activity/Vol] 35 U/L 16-61 [facility] CO2 [Moles/Vol] 28.0 mmol/L 21.0-32.0 [facility] Globulin (S) [Mass/Vol] 3.5 g/dL 2.2-4.2 [facility] Urea nitrogen/Creatinine [Mass ratio] 14.7 mg/mg 10-20 [facility] Laboratory - Hematology and Cell countsOrdered By: Dr. Holman on 06-20-2022 Erythrocyte distribution width (RBC) [Entitic vol] 45.2 fL 35.1-43.9 [facility] Erythrocyte distribution width (RBC) [Ratio] 13.1 % 11.6-14.6 [facility] Immature granulocytes/100 WBC (Bld) 0.200 % 0.0-0.9 [facility] Comment on above: IG% - Immature Granu locytes (promyelocytes, myelocytes and metamyelocytes) > 1% indicates that a LEFT SHIFT is Present. MCH (RBC) [Entitic mass] 29.6 pg 27.0-32.0 [facility] Nucleated RBC/100 WBC (Bld) [Ratio] 0 % 0-5 [facility] MCHC Auto (RBC) [Mass/Vol]Or dered By: Dr. Holman on 06-20-2022 MCHC (RBC) [Mass/Vol] 31.5 g/dL 32-36 [facility] Nitrite Test strip Ql (U)Ord ered By: Dr. Holman on 06-20-2022 Nitrite Ql (U) Negative Negative [facility] No Panel InformationOrdered By: Dr. Holman on 06-20-2022 Estimated GFR (MDRD) Amer 65 mL/min >60 [facility] Comment on above: GFR Calc Estimated GFR (MDRD) Non-Af Amer 53 mL/min >60 [facility] Comment on above: Non- GFR Calc Prostate Specific Antigen Screen 0.69 ng/mL 0.00-4.00 [facility] Comment on above: This test was perfor med using the TPSA assay method for InRadio chemistry system. Values obtained with differentassay methods cannot be used interchangably.When changing PSA assays in the course of monitoring apatient, additional sequential testing should be carriedout to confirm baseline values. Thyroid Stimulating Hormone (TSH) 1.52 uIU/mL 0.358-3.74 [facility] Platelets bldOrdered By: Dr. Holman on 06-20-2022 Platelets (Bld) [#/Vol] 304 10*3/uL 150-450 [facility] Protein Test strip Ql (U)Ord ered By: Dr. Holman on 06-20-2022 Protein Ql (U) Negative Negative [facility] Serum or plasma albumin chastity urement (mass/volume)Ordered By: Dr. Holman on 06-20-2022 Albumin [Mass/Vol] 3.9 g/dL 3.2-5.0 [facility] Serum or plasma albumin/glob ulin mass ratioOrdered By: Dr. Holman on 06-20-2022 Albumin/Globulin [Mass ratio] 1.1 {ratio} 0.9-2.4 [facility] Serum or plasma calcium chastity urement (mass/volume)Ordered By: Dr. Holman on 06-20-2022 Calcium [Mass/Vol] 9.1 mg/dL 8.5-10.1 [facility] Serum or plasma cholesterol in HDL measurement (mass/volume)Ordered By: Dr. Holman on 06-20-2022 Cholesterol in HDL [Mass/Vol] 64 mg/dL >40 [facility] Comment on above: The drugs N-Acetylcy steine and Metamizole may falsely depress this assay. Reference Range HDL <40 mg/dL Low HDL Cholesterol HDL >or= 60 mg/dL High HDL Cholesterol Serum or plasma cholesterol in VLDL measurement (mass/volume)Ordered By: Dr. Holman on 06-20-2022 Cholesterol in VLDL [Mass/Vol] 11 mg/dL 5-40 [facility] Serum or plasma creatinine m easurement (mass/volume)Ordered By: Dr. Holman on 06-20-2022 Creatinine [Mass/Vol] 1.43 mg/dL 0.70-1.30 [facility] Comment on above: The validity of the calculated GFR & GFRAA in patients over 70 years has not been determined. Clinical correlation is essential. Serum or plasma low density lipoprotein (LDL) cholesterol measurement (mass/volume)Ordered By: Dr. Holman on 06-20-2022 Cholesterol in LDL [Mass/Vol] 83 mg/dL 0-130 [facility] Serum or plasma urea nitroge n measurement (mass/volume)Ordered By: Dr. Holman on 06-20-2022 Urea nitrogen [Mass/Vol] 21 mg/dL 7-18 [facility] Thin prep Papanicolaou smear with manual screeningOrdered By: Dr. Holman on 06-20-2022 Thin prep Papanicolaou smear with manual screening 28 U/L 15-37 [facility] Thin prep Papanicolaou smear with manual screening 5 5-15 [facility] Urine blood detectionOrdered By: Dr. Holman on 06-20-2022 RBC Ql (U) Negative Negative [facility] Urine clarityOrdered By: Dr. Holman on 06-20-2022 Clarity (U) Sl. Cloudy Clear [facility] Urine color determinationOrd ered By: Dr. Holman on 06-20-2022 Color (U) Yellow Yellow [facility] Urine glucose detectionOrder ed By: Dr. Holman on 06-20-2022 Glucose Ql (U) Normal mg/dl Normal [facility] Urine leukocyte esterase det ection by dipstickOrdered By: Dr. Holman on 06-20-2022 Leukocyte esterase Test strip Ql (U) Negative Negative [facility] Urine pHOrdered By: Dr. Reid bullock on 06-20-2022 pH (U) 5.0 [pH] 5.0 - 8.0 [facility] Urine specific gravity measu rementOrdered By: Dr. Holman on 06-20-2022 Specific gravity (U) [Rel density] 1.020 1.002-1.030 [facility] Urobilinogen Auto test strip Ql (U)Ordered By: Dr. Holman on 06-20-2022 Urobilinogen Ql (U) Normal mg/dl Normal [facility] CNPNon 08-02-2020 CNPN Telephone (GASTTW) TWIN BLUNT ([id number]) 1960 M Date Time Provider Department 08/02/20 GER GILLILAND During your visit today, we recorded the following information about you: Ger Gilliland MD 08/02/2020 5:40 PM Signed Colon polyp was a tubular adenoma Shae Sim Ma 08/03/2020 8:10 AM Signed lmom for pt to return call to relay message Jitendra Valle Ma 08/03/2020 10:20 AM Signed Patient returned call and results given. Patient to repeat colonoscopy in 5 years for surveillance. Patient verbalizes understanding and has no other questions or concerns at this time. Jitendra Valle CMa August 03, 2020 10:20 AM Allergies As of Date: 08/02/2020 (No Known Allergies) Date Reviewed: 07/31/2020 Reviewed by: uAdrey (Rn) ZEB Romero - Fully Assessed Reason for Visit: Results [95] Prescriptions as of 08/02/2020 Sig: MULTIVITAMIN CAPSULE Take 1 capsule by mouth once * POLYETHYLENE GLYCOL 3350 17 G* Use as directed for Miralax /* BISACODYL 5 MG TABLET Use as directed for Miralax /* OMEPRAZOLE 20 MG CAPSULE,RAMILA* Take 20 mg by mouth twice eryn* GLUCOSAMINE (BULK) MISC once daily. Problem List As Of Date: 08/02/2020 (None) Encounter Status:Closed by JITENDRA VALLE MA on 08/03/20 [facility] BRIEF OP NOTon 07-31-2020 BRIEF OP NOT HNO ID: [id number] Author: Ger Gilliland Service: Gastroenterology Author Type: Physician Type: Brief Op Note Filed: 07/31/2020 12:20 PM Note Text: BRIEF OPERATIVE NOTE PATIENT NAME: Twin Blunt LOG ID: [id number] Surgery Date: 07/31/2020 Surgeon(s) and Drafter Engineering(s): Ger Gilliland MD -Primary Procedure(s): Procedure(s) (LRB): COLONOSCOPY (N/A) EGD (N/A) EGD WITH BIOPSY (N/A) Anesthesia: Procedural Sedation Findings: Descending colon polyp otherwise normal colonoscopy and normal EGD Estimated Blood Loss: Minimal Specimens: Antral and descending colon polyp Preop Diagnosis: Chronic GERD and family history colon cancer Postop Diagnosis: *Same as above* SIGNATURE: Ger Gilliland MD DATE: July 31, 2020 TIME: 12:19 PM [facility] HISTORY PHYSICALon HISTORY PHYSICAL HNO ID: [id number] Author: Ger Gilliland Service: Gastroenterology Author Type: Physician Type: HANDP Filed: 07/31/2020 11:43 AM Note Text: UPDATED HISTORY AND PHYSICAL EXAMINATION SERVICE DATE: 07/31/2020 SERVICE TIME: 11:43 AM PHYSICAL EXAM MUST BE COMPLETED ON ADMISSION The History and Physical (completed in the past 30 days) has been reviewed and the patient has been examined. The contents accurately reflect the patient's condition with the following additions or revisions since the HANDP was completed. Examination indicates no changes. This HANDP can be found in the Electronic Medical Record dated 07/20/2020. SIGNATURE: Ger Gilliland MD PATIENT NAME: Twin Blunt DATE: July 31, 2020 TIME: 11:43 AM [facility] NURSING PROGon 07-31-2020 NURSING PROG HNO ID: [id number] Author: Audrey Minaya) ZEB Romero Service: ? Author Type: Registered Nurse Type: Nursing Progress Note Filed: 07/31/2020 12:33 PM Note Text: Arrived in phase II via cart. Left lateral position. Sedated, but responds to verbal stimuli. Color normal; skin warm and dry. Respirations wnl and unlabored. Abdomen soft and with + bowel sounds in quads X 4. Patient resting comfortably. Dr. Gilliland at bedside to review procedure and recommendations. Audrey Romero RN [facility] NURSING PROG HNO ID: [id number] Author: Michelle (Rn) ZEB Chambers Service: ? Author Type: Registered Nurse Type: Nursing Progress Note Filed: 07/31/2020 11:58 AM Note Text: [facility] PRE-OP NURSING HAND OFF NOTE SBAR Hand off given to Lesley Ortega RN. Hand off was communicated verbally and at the patient's bedside and all questions were answered. Michelle Chambers RN [facility] SURGICAL PATHOLOGYon 021 SURGICAL PATHOLOGY Specimen originated from [facility] Specimen #: [id number] Submitting Physician: GER GILLILAND MD FINAL DIAGNOSIS 1. Gastric antrum, biopsy (A) - Oxyntic mucosa with no significant diagnostic alteration. - No morphologic evidence of Helicobacter pylori organisms. 2. Descending colon polyp, biopsy (B) - Tubular adenoma, see comment. SONYA/audra 08/01/2020 COMMENT 2. Multiple deeper levels are examined on block B1, which confirms the diagnosis. Aure Sheffield M.D., Ph.D. (Electronic Signature) SPECIMEN SUBMITTED A: ANTRUM, BIOPSY B: DESCENDING COLON POLYP CLINICAL DATA FAMILY HISTORY OF COLON CANCER, GERD A: H/H GROSS DESCRIPTION A. Received in formalin are multiple pieces of lopez, soft tissue aggregating to 0.5 x 0.2 x 0.2 cm. Totally submitted in one cassette. B. Received in formalin is one piece of lopez, soft tissue measuring 0.3 x 0.2 x 0.2 cm. Totally submitted in one cassette. Gross examination performed at [facility], [address] [place] [address] 07/31/2020 10:27:37 PM Date of Report: 08/02/2020 Date of Procedure: 07/31/2020 Date of Receipt: 07/31/2020 Submitted by: GER GILLILAND MD Location: [id number] Diagnostic interpretation performed at [place] [address]. CLIA Number: [id number] [facility] CNOVon 07-20-2020 CNOV Office Visit (TEX) BLUNTTWIN OBREGON Ayse ([id number]) 1960 M Date Time Provider Department 07/20/20 3:00 PM GARDENIA PUENTE During your visit today, we recorded the following information about you: Pulse Blood pressure Weight Height 91/minute 130/74 86.6 kg 1.805 m Gardenia Puente RN STOCK PULLER.FAMILY PRACTITIONER 07/20/2020 4:05 PM Signed Twin Blunt a 60 year old male who is self referred for screening colonoscopy. The patient reports a family history of colon cancer in that his father had the disease. The patient was seen by Dr. Gilliland for upper endoscopy (dysphagia) and colonoscopy 05/01/15. The procedure report has been reviewed and findings as follows: EGD Impression:- Normal esophagus. ? - Normal stomach. Biopsied. ? - Normal examined duodenum. Colonoscopy Impression: - Diverticulosis in the sigmoid colon and in the descending colon. ? - No specimens collected. I have reviewed the procedure and pathology reports, as well as the images, with the patient. Screening colonoscopy was recommended in 5 years due to family history. Presenting complaint: screening colonoscopy The patient denies change in bowel habits, rectal bleeding or lower abdominal pain. Having a bowel movement at least once a day (in the morning) and occasionally again later in the day. Reports having hemorrhoids as well as a fissure. Taking omeprazole 20mg twice daily. He tells me that he went off of the evening dose, and can't manage for more than three months without having return of a cough and a mild chest pressure. Usually has dinner: as close to 5 as possible. Evening snack: not after 8. Bedtime medications: no. Heads to bed: 10. Sleeps in a regular bed with the head of the bed flat. REVIEW OF SYSTEMS: GENERAL: No weight loss, malaise or fevers ORAL: Able to open his mouth at least 2 fingers wide. RESPIRATORY: Negative for cough, hemoptysis, wheezing, COPD, dyspnea or shortness of breath CARDIOVASCULAR: Negative for chest pain, leg swelling, hypertension, CHF or palpitations GI: The patient states that his appetite has been good. He does get hungry. There has been no nausea, no vomiting. He denies dysphagia and denies odynophagia. There has sometimes been indigestion or heartburn. There has not been regurgitation. Bowel habits have been regular. There has not been diarrhea. There has not been constipation. The patient denies rectal bleeding, but experiences hemorrhoidal irritation. There has not been melena. No lower abdominal pain. MUSCULOSKELETAL: Negative for new or worsening joint pain or swelling, back pain or muscle pain PSYCH: Negative for anxiety or depression HEMATOLOGY/LYMPHOLOG Y Negative for prolonged bleeding, bruising easily or swollen nodes ENDOCRINE: thyroid or diabetes NEURO: No history of headaches, syncope, paralysis, seizures or tremors All other reviewed and negative other than HPI. PAST MEDICAL HISTORY Diagnosis Date - Reflux esophagitis PAST SURGICAL HISTORY Procedure Laterality Date - COLONOSCOP W/ OR W/O BRSH SPEC 05/01/15 Colonoscopy - EGD W/O OR W/BRUSH/WASH 05/01/15 EGD FAMILY HISTORY Problem Relation Age of Onset - Hypertension Mother - Arthritis Mother - Colon Cancer Father - Colon Cancer Paternal Grandmother Current Outpatient Medications Medication Sig Dispense Refill - omeprazole (PRILOSEC) 20 mg capsule Take 20 mg by mouth twice daily. - GLUCOSAMINE HCL (GLUCOSAMINE, BULK, MISC) once daily. No current facility-administere d medications for this visit. SOCIAL HISTORY: Patient is . He has never smoked. Twin reports his alcohol use as never. PHYSICAL EXAMINATION: Blood pressure 130/74, pulse 91, height 180.5 cm (5' 11.06), weight 86.6 kg (191 lb), SpO2 99 %. General Appearance: Well appearing, alert, in no acute distress, well-hydrated, well nourished. Skin: Skin color, texture, turgor normal, no suspicious rashes or lesions. Head: Normocephalic, no abnormalities. Eyes: Anicteric sclera. Neck: Supple, no adenopathy; thyroid symmetric, normal size. Lungs: Lungs clear to auscultation. Heart: RRR without murmur. Abdomen: Abdomen soft, non-tender. Bowel sounds normal. No masses, organomegaly. Extremities: No deformities, edema, skin discoloration, clubbing or cyanosis. Neurologic: Gait normal. Sensation grossly intact. Impression: family history of colon cancer 2)senior care use of PPI 3)diverticulosis Plan: The patient will be scheduled for an upper endoscopy as well as a colonoscopy. Preparation for the procedures, using the Miralax ?dulcolax prep, have been explained in detail. The risks, benefits, anticipated outcomes and possible complications were mentioned, including including failure to complete the endoscopy and perforation. I explained the procedure in understandable (more content not included)... [facility] Roel 07-20-2020 RODERICKN Telephone (GASTWS) TWIN BLUNT ([id number]) 1960 M Date Time Provider Department 07/20/20 GARDENIA PUENTE During your visit today, we recorded the following information about you: Luis A Gustafson LPN 07/20/2020 4:26 PM Signed Patient is scheduled at [facility] on 07/31/[address] Gilliland for a colonoscopy and EGD. DX: Family history of colon cancer in father [Z80.0] Gastroesophageal reflux disease, unspecified whether esophagitis present [K21.9] Current use of proton pump inhibitor [Z79.899] Verbal and written instructions given. [facility] SURGICAL PHONE NOTE Date of Procedure/Surgery: 07/31/20 Procedure/Surgery Type: EGD COLONOSCOPY ? SEDATION:Conscious Sedation Location of Planned Procedure/Surgery: ? [facility] Surgery/Procedure Ordered: Yes COVID Testing Required: (FOR MAC CASES AND ASC PROCEDURES OTHER THAN COLON AND EGD): No Pre-Op Clearance Needed: No Prep Ordered:Yes: MIRALAX Prep Instructions given:Yes: Given in the office. Referral Completed:PAVE to complete. Patient Diabetic:No. Medication Considerations: Any meds that need to be held: No Patient on blood Thinners:No Pacemaker or Defibrillator:No Patient/Family Informed of above information and given directions regarding location/arrival: Yes: Patient Transportation Considerations: No Other Important Information: No Any physical limitations: No Any cognitive limitations: No Sonar Watchstander/Translat or required: No Communication Limitations: No Allergies As of Date: 07/20/2020 (No Known Allergies) Date Reviewed: 07/20/2020 Reviewed by: Luis A Gustafson LPN - Fully Assessed Reason for Visit: Procedure [88] Cmt: EGD and colonoscopy Primary Visit Diagnosis:Gastroesop hageal reflux disease, unspecified whether esophagitis present [K21.9] Other Visit Diagnoses:Current use of proton pump inhibitor [Z79.899] Family history of colon cancer in father [Z80.0] Order(s):SURGICAL REQUEST - ELECTIVE (11/2019) [4999916] Order #: [id number]: 1 Prescriptions as of 07/20/2020 Sig: MULTIVITAMIN CAPSULE Take 1 capsule by mouth once * POLYETHYLENE GLYCOL 3350 17 G* Use as directed for Miralax /* BISACODYL 5 MG TABLET Use as directed for Miralax /* OMEPRAZOLE 20 MG CAPSULE,RAMILA* Take 20 mg by mouth twice eryn* GLUCOSAMINE (BULK) MISC once daily. Problem List As Of Date: 07/20/2020 (None) Encounter Status:Closed by LUIS A GUSTAFSON LPN on 08/02/20 [facility] HISTORY PHYSICALon HISTORY PHYSICAL HNO ID: [id number] Author: Gardenia Puente Service: ? Author Type: Nurse Practitioner Type: HANDP Filed: 07/20/2020 4:05 PM Note Text: Twin Blunt a 60 year old male who is self referred for screening colonoscopy. The patient reports a family history of colon cancer in that his father had the disease. The patient was seen by Dr. Gilliland for upper endoscopy (dysphagia) and colonoscopy 05/01/15. The procedure report has been reviewed and findings as follows: EGD Impression:- Normal esophagus. ? - Normal stomach. Biopsied. ? - Normal examined duodenum. Colonoscopy Impression: - Diverticulosis in the sigmoid colon and in the descending colon. ? - No specimens collected. I have reviewed the procedure and pathology reports, as well as the images, with the patient. Screening colonoscopy was recommended in 5 years due to family history. Presenting complaint: screening colonoscopy The patient denies change in bowel habits, rectal bleeding or lower abdominal pain. Having a bowel movement at least once a day (in the morning) and occasionally again later in the day. Reports having hemorrhoids as well as a fissure. Taking omeprazole 20mg twice daily. He tells me that he went off of the evening dose, and can't manage for more than three months without having return of a cough and a mild chest pressure. Usually has dinner: as close to 5 as possible. Evening snack: not after 8. Bedtime medications: no. Heads to bed: 10. Sleeps in a regular bed with the head of the bed flat. REVIEW OF SYSTEMS: GENERAL: No weight loss, malaise or fevers ORAL: Able to open his mouth at least 2 fingers wide. RESPIRATORY: Negative for cough, hemoptysis, wheezing, COPD, dyspnea or shortness of breath CARDIOVASCULAR: Negative for chest pain, leg swelling, hypertension, CHF or palpitations GI: The patient states that his appetite has been good. He does get hungry. There has been no nausea, no vomiting. He denies dysphagia and denies odynophagia. There has sometimes been indigestion or heartburn. There has not been regurgitation. Bowel habits have been regular. There has not been diarrhea. There has not been constipation. The patient denies rectal bleeding, but experiences hemorrhoidal irritation. There has not been melena. No lower abdominal pain. MUSCULOSKELETAL: Negative for new or worsening joint pain or swelling, back pain or muscle pain PSYCH: Negative for anxiety or depression HEMATOLOGY/LYMPHOLOG Y Negative for prolonged bleeding, bruising easily or swollen nodes ENDOCRINE: thyroid or diabetes NEURO: No history of headaches, syncope, paralysis, seizures or tremors All other reviewed and negative other than HPI. PAST MEDICAL HISTORY Diagnosis Date - Reflux esophagitis PAST SURGICAL HISTORY Procedure Laterality Date - COLONOSCOP W/ OR W/O BRSH SPEC 05/01/15 Colonoscopy - EGD W/O OR W/BRUSH/WASH 05/01/15 EGD FAMILY HISTORY Problem Relation Age of Onset - Hypertension Mother - Arthritis Mother - Colon Cancer Father - Colon Cancer Paternal Grandmother Current Outpatient Medications Medication Sig Dispense Refill - omeprazole (PRILOSEC) 20 mg capsule Take 20 mg by mouth twice daily. - GLUCOSAMINE HCL (GLUCOSAMINE, BULK, MISC) once daily. No current facility-administere d medications for this visit. SOCIAL HISTORY: Patient is . He has never smoked. Twin reports his alcohol use as never. PHYSICAL EXAMINATION: Blood pressure 130/74, pulse 91, height 180.5 cm (5' 11.06), weight 86.6 kg (191 lb), SpO2 99 %. General Appearance: Well appearing, alert, in no acute distress, well-hydrated, well nourished. Skin: Skin color, texture, turgor normal, no suspicious rashes or lesions. Head: Normocephalic, no abnormalities. Eyes: Anicteric sclera. Neck: Supple, no adenopathy; thyroid symmetric, normal size. Lungs: Lungs clear to auscultation. Heart: RRR without murmur. Abdomen: Abdomen soft, non-tender. Bowel sounds normal. No masses, organomegaly. Extremities: No deformities, edema, skin discoloration, clubbing or cyanosis. Neurologic: Gait normal. Sensation grossly intact. Impression: family history of colon cancer 2)senior care use of PPI 3)diverticulosis Plan: The patient will be scheduled for an upper endoscopy as well as a colonoscopy. Preparation for the procedures, using the Miralax ?dulcolax prep, have been explained in detail. The risks, benefits, anticipated outcomes and possible complications were mentioned, including including failure to complete the endoscopy and perforation. I explained the procedure in understandable terms and the patient was given printed material concerning the planned procedure. The patient had the opportunity to ask questions concerning the planned procedure. The patient freely consents to the planned procedure. The patient is scheduled for a procedure at (more content not included)... [facility] HOSP 07-20-2020 [facility] Patient:Twin Blunt MRN: Height:5' 11.063(1.805 m) Weight:190 lb 14.7 oz (86.6 kg) Outpatient Medications as of 07/31/20: Multivitamin capsule polyethylene glycol 3350 (MIRALAX, GLYCOLAX) 17 gram/dose powder Bisacodyl (DULCOLAX) 5 mg tab omeprazole (PRILOSEC) 20 mg capsule GLUCOSAMINE HCL (GLUCOSAMINE, BULK, MISC) Admission/Clinic Administered Medications as of 07/31/20: lactated ringers iv infusion fentaNYL 50 mcg/mL 25-100 mcg injection (SUBLIMAZE) midazolam 1-5 mg injection (VERSED) diphenhydrAMINE 12.5-50 mg injection (BENADRYL) Problem List: No problem list on file for this patient. Allergies: No Known Allergies Date Verified:07/31/20 Lab Values No results within the last 30 days for the following basenames: K,HCT Progress Notes ([facility]): Luis A Gustafson LPN 07/20/2020 4:26 PM Signed Patient is scheduled at [facility] on 07/31/[address] Gilliland for a colonoscopy and EGD. DX: Family history of colon cancer in father [Z80.0] Gastroesophageal reflux disease, unspecified whether esophagitis present [K21.9] Current use of proton pump inhibitor [Z79.899] Verbal and written instructions given. [facility] SURGICAL PHONE NOTE Date of Procedure/Surgery: 07/31/20 Procedure/Surgery Type: EGD COLONOSCOPY ? SEDATION:Conscious Sedation Location of Planned Procedure/Surgery: ? [facility] Surgery/Procedure Ordered: Yes COVID Testing Required: (FOR MAC CASES AND ASC PROCEDURES OTHER THAN COLON AND EGD): No Pre-Op Clearance Needed: No Prep Ordered:Yes: MIRALAX Prep Instructions given:Yes: Given in the office. Referral Completed:PAVE to complete. Patient Diabetic:No. Medication Considerations: Any meds that need to be held: No Patient on blood Thinners:No Pacemaker or Defibrillator:No Patient/Family Informed of above information and given directions regarding location/arrival: Yes: Patient Transportation Considerations: No Other Important Information: No Any physical limitations: No Any cognitive limitations: No Sonar Watchstander/Translat or required: No Communication Limitations: No [facility] Encounters Encounter Date Encounter Type Care Provider Facility Start: 10-28-2024 ambulatory [facility] Facility: [facility] Start: 12-12-2023 Encounter for genera l adult medical examination without abnormal findings [facility] Start: 11-21-2023 End: 11-21-2023 ambulatory [facility] Facility:[facility] Start: 07-25-2022 Non-patient / Non-visit Dr. Ami Holman Work Phone: [facility] Start: 07-25-2022 End: 07-25-[address] Gato Holman Work Phone: [facility] Work Phone: Start: 07-25-2022 End: 07-25-[address] Gato Holman Work Phone: [facility] Start: 06-20-2022 End: 06-20-2022 ambulatory [facility] Work Phone: Start: 06-20-2022 End: 06-20-2022 Patient encounter procedure [facility]Vanessa Gar[facility] Start: 07-04-2017 End: 09-18-2017 Ambulatory MRAIO SLAUGHTER Facility:B Payers Date Payer Category Payer Private Health Insurance [id number] Self-pay [id number] 2017 Unknown [id number] 2012 Unknown [facility] [id number] Unknown [id number] Unknown [id number] Social History Date Type Detail [facility] ever [facility] Work Phone: Start: 1960 Sex Assigned At Male [facility] Evaluation note Note Date & Type Note Facility Evaluation note No assessment information availa ble [facility] Work Phone: Summary Purpose Family History No Family History Records Found Relationship Condition Age at Onset Recorded Date/T tamiko father Malignant neoplasm of colon Unknown Fibrosis of lung Unknown mother Hypertension Unknown grandmother Congestive heart failure Unknown Advance Directives No Advanced Directives Records FoundNo Advanced Directives Records FoundNo Advanced Directives Records Found Chief Complaint and Reason for Visit Chief Complaint FREQUENT PVC Additional Source Comments (unrecognized sect ion and content) No Status Records FoundNo Status Records FoundNo Status Records Found INFORMATION SOURCE (unrecogn ized section and content) DATE CREATED AUTHOR 10/15/2017 [facility] ([place]) DATE CREATED AUTHOR AUTHOR'S ORGANIZ ATION 05/21/2021 [facility] DATE CREATED AUTHOR AUTHOR'S ORGANIZ ATION 10/31/2024 [facility] Care Teams (unrecognized sec tion and content) Team Status: Active Member Role Status Dates Dr. Lev Neff MD Family Provider Active Dr. Gato Holman , Primary Care Provider Active Team Status: Inactive Member Role Status Dates Dr. Gato Holman DO Primary Care Provider, Attendin g Provider Active Team Status: Active Member Role Status Dates Dr. Gato Holman DO Primary Care Provider Active Dr. Lourdes Luong MD Attending Provider Activ e Team Status: Inactive Member Role Status Dates Dr. Gato Holman DO Primary Care Prov ider, Attending Provider, Referring Provider Active Goals (unrecognized section and content) Goals may be documented in a n alternate sectionGoals may be documented in an alternate section FOR RECORDS PERTAINING TO PATIENTS WHO ARE OR HAVE BEEN ENROLLED IN A CHEMICAL DEPENDENCY/SUBSTANCEABUSE PROGRAM, SOME INFORMATION MAY BE OMITTED. This clinical summary was aggregated from multiple sources. Caution should be exercised in using it in the provision of clinical care. This summary normalizes information from multiple sources, and as a consequence, information in this document may materially change the coding, format and clinical context of patient data. In addition, data may be omitted in some cases. CLINICAL DECISIONS SHOULD BE BASED ON THE PRIMARY CLINICAL RECORDS. [facility] [employer] [facility]. provides no warranty or guarantee of the accuracy or completeness of information in this document.
--- OUTSIDE RECORDS SUMMARY | 2024-11-10 09:18 | XMS RPT_ITS | CCD ---
Author Organization [facility] ion Partnership [facility] Care Team Providers Care Public Policy Mediator Name Role Phone MARIO SLAUGHTER Unavailable Unavailab MARIO Rodriguez Unavailable Unavailab LEV Wilson Unavailable Unavailable Dr. Gato Holman Primary Care Provider [phone] [address]. Lourdes Luong Attending Provider Gato Holman Referring Unavailable Gato Holman Attending [...] 1:00am Start: 06-26-2017 take 1 capsule by [facility] once daily vitamins A,C,and E-selenium capsule Active 1 CAP PO daily June 26, 2017 12:00am Results Test Name Value Interpretation Reference Range Facility CBC W/Diff, Automatedon 07-2 Absolute Lymph 1.61 X10 3/uL Normal 0.83-4.51 [facility] Comment on above: Performed By: #### L 500.4100, L500.4050, L501.9910, L100.0100 #### [facility] [address] [place], [address] Absolute Neut 2.4 X10 3/uL Normal 2.0-7.7 [facility] Comment on above: Performed By: #### L 500.4100, L500.4050, L501.9910, L100.0100 #### [facility] [address] [place], [address] Basophils/100 WBC (Bld) 1.4 % High 0-1 [facility] Comment on above: Performed By: #### L 500.4100, L500.4050, L501.9910, L100.0100 #### [facility] [address] [place], [address] Eosinophils/100 WBC (Bld) 4.5 % Normal 0-5 [facility] Comment on above: Performed By: #### L 500.4100, L500.4050, L501.9910, L100.0100 #### [facility] [address] [place], [address] Erythrocyte distribution width (RBC) [Ratio] 13.3 % Normal 11.6-14.6 [facility] Comment on above: Performed By: #### L 500.4100, L500.4050, L501.9910, L100.0100 #### [facility] [address] [place], [address] Hematocrit (Bld) [Volume fraction] 43.2 % Normal 40-54 [facility] Comment on above: Performed By: #### L 500.4100, L500.4050, L501.9910, L100.0100 #### [facility] [address] [place], [address] Hemoglobin (Bld) [Mass/Vol] 13.9 g/dL Normal 13.0-16.5 [facility] Comment on above: Performed By: #### L 500.4100, L500.4050, L501.9910, L100.0100 #### [facility] [address] [place], [address] IG% 0.200 Normal 0.0-0.9 [facility] Comment on above: Result Comment: IG% - Immature Granulocytes (promyelocytes, myelocytes and metamyelocytes) > 1% indicates that a LEFT SHIFT is Present. Performed By: #### L 500.4100, L500.4050, L501.9910, L100.0100 #### [facility] [address] [place], [address] Lymphocytes/100 WBC (Bld) 33.2 % Normal 19-41 [facility] Comment on above: Performed By: #### L 500.4100, L500.4050, L501.9910, L100.0100 #### [facility] [address] [place], [address] MCH (RBC) [Entitic mass] 30.4 pg Normal 27.0-32.0 [facility] Comment on above: Performed By: #### L 500.4100, L500.4050, L501.9910, L100.0100 #### [facility] [address] [place], [address] MCHC (RBC) [Mass/Vol] 32.2 g/dL Normal 32-36 [facility] Comment on above: Performed By: #### L 500.4100, L500.4050, L501.9910, L100.0100 #### [facility] [address] [place], [address] MCV (RBC) [Entitic vol] 94.5 fL High 80-94 [facility] Comment on above: Performed By: #### L 500.4100, L500.4050, L501.9910, L100.0100 #### [facility] [address] [place], [address] Monocytes/100 WBC (Bld) 11.1 % High 0-10 [facility] Comment on above: Performed By: #### L 500.4100, L500.4050, L501.9910, L100.0100 #### [facility] [address] [place], [address] Neutrophils/100 WBC (Bld) 49.6 % Normal 47-70 [facility] Comment on above: Performed By: #### L 500.4100, L500.4050, L501.9910, L100.0100 #### [facility] [address] [place], [address] Nucleated RBC (Bld) [#/Vol] 0 10*3/uL Normal 0-5 [facility] Comment on above: Performed By: #### L 500.4100, L500.4050, L501.9910, L100.0100 #### [facility] [address] [place], [address] Platelet mean volume (Bld) [Entitic vol] 9.2 fL Normal 6.2-12.0 [facility] Comment on above: Performed By: #### L 500.4100, L500.4050, L501.9910, L100.0100 #### [facility] [address] [place], [address] Platelets (Bld) [#/Vol] 223 10*3/uL Normal 150-450 [facility] Comment on above: Performed By: #### L 500.4100, L500.4050, L501.9910, L100.0100 #### [facility] [address] [place], [address] RBC (Bld) [#/Vol] 4.57 10*6/uL Low 4.6-6.[address] [facility] Comment on above: Performed By: #### L 500.4100, L500.4050, L501.9910, L100.0100 #### [facility] [address] [place], [address] RDW SD 46.5 fl High 35.1-43.9 [facility] Comment on above: Performed By: #### L 500.4100, L500.4050, L501.9910, L100.0100 #### [facility] [address] [place], [address] WBC (Bld) [#/Vol] 4.9 10*3/uL Normal 4.4-11.0 [place] Comment on above: Performed By: #### L 500.4100, L500.4050, L501.9910, L100.0100 #### [facility] [address] [place], [address] Comprehensive Metabolic Prof [facility] 11-21-2023 Albumin [Mass/Vol] 3.8 g/dL Normal 3.2-5.0 [place] Comment on above: Performed By: #### L 500.4100, L500.4050, L501.9910, L100.0100 #### [facility] [address] [place], [address] Albumin/Globulin [Mass ratio] 1.3 {ratio} Normal 0.9-2.4 [facility] Comment on above: Performed By: #### L 500.4100, L500.4050, L501.9910, L100.0100 #### [facility] [address] [place], [address] ALK P 70 U/L Normal 45-117 [facility] Comment on above: Performed By: #### L 500.4100, L500.4050, L501.9910, L100.0100 #### [facility] [address] [place], [address] ALT [Catalytic activity/Vol] 24 U/L Normal 16-61 [facility] Comment on above: Performed By: #### L 500.4100, L500.4050, L501.9910, L100.0100 #### [facility] [address] [place], [address] AST [Catalytic activity/Vol] 20 U/L Normal 15-37 [facility] Comment on above: Performed By: #### L 500.4100, L500.4050, L501.9910, L100.0100 #### [facility] [address] [place], [address] Bilirubin [Mass/Vol] 0.70 mg/dL Normal 0.20-1.00 [facility] Comment on above: Result Comment: For patients on eltrombopag therapy, use of Dimension [place] TBIL is not recommended. Performed By: #### L 500.4100, L500.4050, L501.9910, L100.0100 #### [facility] [address] [place], [address] BUN/CRE 18.0 RATIO Normal 10-20 [facility] Comment on above: Performed By: #### L 500.4100, L500.4050, L501.9910, L100.0100 #### [facility] [address] [place], [address] CA,Total 8.8 mg/dL Normal 8.5-10.1 [facility] Comment on above: Performed By: #### L 500.4100, L500.4050, L501.9910, L100.0100 #### [facility] [address] [place], [address] Chloride [Moles/Vol] 108 mmol/L High 98-107 [facility] Comment on above: Performed By: #### L 500.4100, L500.4050, L501.9910, L100.0100 #### [facility] [address] [place], [address] CO2 [Moles/Vol] 29.0 mmol/L Normal 21.0-32.0 [facility] Comment on above: Performed By: #### L 500.4100, L500.4050, L501.9910, L100.0100 #### [facility] [address] [place], [address] Creatinine [Mass/Vol] 1.22 mg/dL Normal 0.70-1.30 [facility] Comment on above: Result Comment: The validity of the calculated GFR GFRAA in patients over 70 years has not been determined. Clinical correlation is essential. Performed By: #### L 500.4100, L500.4050, L501.9910, L100.0100 #### [facility] [address] [place], [address] EST GFR - AA 77 mL/min Normal >60 [facility] Comment on above: Result Comment: Afri can [place] GFR Calc Performed By: #### L 500.4100, L500.4050, L501.9910, L100.0100 #### [facility] [address] [place], [address] GAP 4 Low 5-15 [facility] Comment on above: Performed By: #### L 500.4100, L500.4050, L501.9910, L100.0100 #### [facility] [address] [place], [address] GFR/1.73 sq M.predicted among non-blacks MDRD (S/P/Bld) [Vol rate/Area] 64 mL/min/{1.73_m2} Normal >60 [facility] Comment on above: Result Comment: Non- GFR Calc Performed By: #### L 500.4100, L500.4050, L501.9910, L100.0100 #### [facility] [address] [place], [address] Globulin (S) [Mass/Vol] 3.0 g/dL Normal 2.2-4.2 [facility] Comment on above: Performed By: #### L 500.4100, L500.4050, L501.9910, L100.0100 #### [facility] [address] [place], [address] Glucose [Mass/Vol] 89 mg/dL Normal 74-106 [place] Comment on above: Performed By: #### L 500.4100, L500.4050, L501.9910, L100.0100 #### [facility] [address] [place], [address] Potassium [Moles/Vol] 4.0 mmol/L Normal 3.5-5.1 [facility] Comment on above: Performed By: #### L 500.4100, L500.4050, L501.9910, L100.0100 #### [facility] [address] [place], [address] Sodium [Moles/Vol] 141 mmol/L Normal 136-145 [facility] Comment on above: Performed By: #### L 500.4100, L500.4050, L501.9910, L100.0100 #### [facility] [address] [place], [address] T PROT 6.8 g/dL Normal 6.4-8.2 [facility] Comment on above: Performed By: #### L 500.4100, L500.4050, L501.9910, L100.0100 #### [facility] [address] [place], [address] Urea nitrogen [Mass/Vol] 22 mg/dL High 7-18 [facility] Comment on above: Performed By: #### L 500.4100, L500.4050, L501.9910, L100.0100 #### [facility] [address] [place], [address] Lipid Profileon 11-21-2023 Cholesterol [Mass/Vol] 171 mg/dL Normal 200 [facility] Comment on above: Result Comment: <200 mg/dL Desirable 200-240 mg/dL Borderline >240 mg/dL High Risk Performed By: #### L 500.4100, L500.4050, L501.9910, L100.0100 #### [facility] [address] [place], [address] Cholesterol in HDL [Mass/Vol] 80 mg/dL Normal [facility] Comment on above: Result Comment: The drugs N-Acetylcysteine and Metamizole may falsely depress this assay. Reference Range HDL <40 mg/dL Low HDL Cholesterol HDL >or= 60 mg/dL High HDL Cholesterol Performed By: #### L 500.4100, L500.4050, L501.9910, L100.0100 #### [facility] [address] [place], [address] Cholesterol in LDL [Mass/Vol] 77 mg/dL Normal 0-130 [facility] Comment on above: Performed By: #### L 500.4100, L500.4050, L501.9910, L100.0100 #### [facility] [address] [place], [address] Cholesterol in VLDL [Mass/Vol] 14 mg/dL Normal 5-40 [facility] Comment on above: Performed By: #### L 500.4100, L500.4050, L501.9910, L100.0100 #### [facility] [address] [place], [address] Triglyceride [Mass/Vol] 68 mg/dL Normal [facility] Comment on above: Result Comment: The drugs N-Acetylcysteine and Metamizole may falsely depress this assay. Serum Triglycerides Reference Interval Normal <150 mg/dL Borderline high 150 - 199 mg/dL High 200 - 499 mg/dL Very High > or = 500 mg/dL Performed By: #### L 500.4100, L500.4050, L501.9910, L100.0100 #### [facility] [address] [place], [address] PSA,Total - Annual Screenon 11-21-2023 PSA,TOT SCREEN 0.60 ng/mL Normal 0.00-4.00 [facility] Comment on above: Result Comment: This test was performed using the TPSA assay method for the [employer] chemistry system. Values obtained with different assay methods cannot be used interchangably. When changing PSA assays in the course of monitoring a patient, additional sequential testing should be carried out to confirm baseline values. Performed By: #### L 500.4100, L500.4050, L501.9910, L100.0100 #### [facility] [address] [place], [address] Absolute lymphocyte countOrd ered By: Dr. Holman on 06-20-2022 Lymphocytes Auto (Unsp spec) [#/Vol] 1.48 10*3/uL 0.83-4.51 [facility] Basophil percentageOrdered B y: Dr. Holman on 06-20-2022 Basophils/100 WBC (Bld) 1.1 % 0-1 [facility] Bilirubin [Mass/Vol] 0.60 mg/dL 0.20-1.00 [facility] Comment on above: For patients on eltr ombopag therapy, use of Dimension [place] TBIL is not recommended. Chloride [Moles/Vol] 107 mmol/L 98-107 [facility] Cholesterol [Mass/Vol] 158 mg/dL <200 [facility] Comment on above: <200 mg/dL Desirable 200-240 mg/dL Borderline >240 mg/dL High Risk Eosinophils/100 WBC (Bld) 3.2 % 0-5 [facility] Glucose [Mass/Vol] 98 mg/dL 74-106 [facility] Neutrophils (Bld) [#/Vol] 3.0 10*3/uL 2.0-7.7 [facility] Neutrophils/100 WBC (Bld) 57.5 % 47-70 [facility] Potassium [Moles/Vol] 4.2 mmol/L 3.5-5.1 [facility] Protein [Mass/Vol] 7.4 g/dL 6.4-8.2 [place] Sodium [Moles/Vol] 140 mmol/L 136-145 [facility] Triglyceride [Mass/Vol] 54 mg/dL <199 [facility] Comment on above: The drugs N-Acetylcy steine and Metamizole may falsely depress this assay.Serum Triglycerides Reference Interval Normal <150 mg/dL Borderline high 150 - 199 mg/dL High 200 - 499 mg/dL Very High > or = 500 mg/dL WBC (Bld) [#/Vol] 5.3 10*3/uL 4.4-11.0 [facility] Bilirubin Test strip Ql (U)O rdered By: Dr. Holman on 06-20-2022 Bilirubin Ql (U) Negative Negative [facility] Blood erythrocytes count (nu mber/volume)Ordered By: Dr. Holman on 06-20-2022 RBC (Bld) [#/Vol] 4.93 10*6/uL 4.6-6.[address] [facility] Blood hemoglobin measurement (mass/volume)Ordered By: Dr. Holman on 06-20-2022 Hemoglobin (Bld) [Mass/Vol] 14.6 g/dL 13.0-16.5 [facility] Blood lymphocytes/100 leukoc ytesOrdered By: Dr. Holman on 06-20-2022 Lymphocytes/100 WBC (Bld) 28.0 % 19-41 [facility] Blood monocytes/100 leukocyt esOrdered By: Dr. Holman on 06-20-2022 Monocytes/100 WBC (Bld) 10.0 % 0-10 [facility] Blood platelet mean volumeOr dered By: Dr. Holman on 06-20-2022 Platelet mean volume (Bld) [Entitic vol] 9.6 fL 6.2-12.0 [facility] Determination of erythrocyte mean corpuscular volume (MCV)Ordered By: Dr. Holman on 06-20-2022 MCV (RBC) [Entitic vol] 94.1 fL 80-94 [facility] Hematocrit Auto (Bld) [Volum e fraction]Ordered By: Dr. Holman on 06-20-2022 Hematocrit (Bld) [Volume fraction] 46.4 % 40-54 [facility] Ketones Test strip Ql (U)Ord ered By: Dr. Holman on 06-20-2022 Ketones Ql (U) Negative Negative [facility] - Chemistry and C hemistry - challengeOrdered By: Dr. Holman on 06-20-2022 ALP [Catalytic activity/Vol] 83 U/L 45-117 [facility] ALT [Catalytic activity/Vol] 35 U/L 16-61 [facility] CO2 [Moles/Vol] 28.0 mmol/L 21.0-32.0 [facility] Globulin (S) [Mass/Vol] 3.5 g/dL 2.2-4.2 [facility] Urea nitrogen/Creatinine [Mass ratio] 14.7 mg/mg 10-20 [facility] - Hematology and Cell countsOrdered By: Dr. Holman on 06-20-2022 Erythrocyte distribution width (RBC) [Entitic vol] 45.2 fL 35.1-43.9 [facility] Erythrocyte distribution width (RBC) [Ratio] 13.1 % 11.6-14.6 [facility] Immature granulocytes/100 WBC (Bld) 0.200 % 0.0-0.9 [facility] Comment on above: IG% - Immature Granu locytes (promyelocytes, myelocytes and metamyelocytes) > 1% indicates that a LEFT SHIFT is Present. MCH (RBC) [Entitic mass] 29.6 pg 27.0-32.0 [facility] Nucleated RBC/100 WBC (Bld) [Ratio] 0 % 0-5 [facility] MCHC Auto (RBC) [Mass/Vol]Or dered By: Dr. Holman on 06-20-2022 MCHC (RBC) [Mass/Vol] 31.5 g/dL 32-36 [facility] Nitrite Test strip Ql (U)Ord ered By: Dr. Holman on 06-20-2022 Nitrite Ql (U) Negative Negative [facility] No Panel InformationOrdered By: Dr. Holman on 06-20-2022 Estimated GFR (MDRD) Amer 65 mL/min >60 [facility] Comment on above: GFR Calc Estimated GFR (MDRD) Non-Af Amer 53 mL/min >60 [facility] Comment on above: Non- GFR Calc Prostate Specific Antigen Screen 0.69 ng/mL 0.00-4.00 [facility] Comment on above: This test was perfor med using the TPSA assay method for [employer] chemistry system. Values obtained with differentassay methods cannot be used interchangably.When changing PSA assays in the course of monitoring apatient, additional sequential testing should be carriedout to confirm baseline values. Thyroid Stimulating Hormone (TSH) 1.52 uIU/mL 0.358-3.74 [facility] Platelets bldOrdered By: Dr. Holman on 06-20-2022 Platelets (Bld) [#/Vol] 304 10*3/uL 150-450 [facility] Protein Test strip Ql (U)Ord ered By: Dr. Holman on 06-20-2022 Protein Ql (U) Negative Negative [facility] Serum or plasma albumin chastity urement (mass/volume)Ordered By: Dr. Holman on 06-20-2022 Albumin [Mass/Vol] 3.9 g/dL 3.2-5.0 [place] Serum or plasma albumin/glob ulin mass ratioOrdered By: Dr. Holman on 06-20-2022 Albumin/Globulin [Mass ratio] 1.1 {ratio} 0.9-2.4 [facility] Serum or plasma calcium chastity urement (mass/volume)Ordered By: Dr. Holman on 06-20-2022 Calcium [Mass/Vol] 9.1 mg/dL 8.5-10.1 [place] Serum or plasma cholesterol in HDL measurement (mass/volume)Ordered By: Dr. Holman on 06-20-2022 Cholesterol in HDL [Mass/Vol] 64 mg/dL >40 [facility] Comment on above: The drugs N-Acetylcy steine and Metamizole may falsely depress this assay. Reference Range HDL <40 mg/dL Low HDL Cholesterol HDL >or= 60 mg/dL High HDL Cholesterol Serum or plasma cholesterol in VLDL measurement (mass/volume)Ordered By: Dr. Holman on 06-20-2022 Cholesterol in VLDL [Mass/Vol] 11 mg/dL 5-40 [facility] Serum or plasma creatinine m easurement (mass/volume)Ordered By: Dr. Holman on 06-20-2022 Creatinine [Mass/Vol] 1.43 mg/dL 0.70-1.30 [facility] Comment on above: The validity of the calculated GFR & GFRAA in patients over 70 years has not been determined. Clinical correlation is essential. Serum or plasma low density lipoprotein (LDL) cholesterol measurement (mass/volume)Ordered By: Dr. Holman on 06-20-2022 Cholesterol in LDL [Mass/Vol] 83 mg/dL 0-130 [facility] Serum or plasma urea nitroge n measurement (mass/volume)Ordered By: Dr. Holman on 06-20-2022 Urea nitrogen [Mass/Vol] 21 mg/dL 7-18 [facility] Thin prep Papanicolaou smear with manual screeningOrdered By: Dr. Holman on 06-20-2022 Thin prep Papanicolaou smear with manual screening 28 U/L 15-37 [facility] Thin prep Papanicolaou smear with manual screening 5 5-15 [facility] Urine blood detectionOrdered By: Dr. Holman on 06-20-2022 RBC Ql (U) Negative Negative [facility] Urine clarityOrdered By: Dr. Holman on 06-20-2022 Clarity (U) Sl. Cloudy Clear [facility] Urine color determinationOrd ered By: Dr. Holman on 06-20-2022 Color (U) Yellow Yellow [facility] Urine glucose detectionOrder ed By: Dr. Holman on 06-20-2022 Glucose Ql (U) Normal mg/dl Normal [facility] Urine leukocyte esterase det ection by dipstickOrdered By: Dr. Holman on 06-20-2022 Leukocyte esterase Test strip Ql (U) Negative Negative [facility] Urine pHOrdered By: Dr. Reid bullock on 06-20-2022 pH (U) 5.0 [pH] 5.0 - 8.0 [facility] Urine specific gravity measu rementOrdered By: Dr. Holman on 06-20-2022 Specific gravity (U) [Rel density] 1.020 1.002-1.030 [facility] Urobilinogen Auto test strip Ql (U)Ordered By: Dr. Holman on 06-20-2022 Urobilinogen Ql (U) Normal mg/dl Normal [facility] CNPNon 08-02-2020 CNPN Telephone (GASTTW) TWIN BLUNT ([id number]) 1960 M Date Time Provider Department 08/02/20 [...] Known Allergies) Date Reviewed: 07/31/2020 Reviewed by: Audrey (Rn) ZEB Romero - Fully Assessed Reason [...] by JITENDRA VALLE MA on 08/03/20 Normal [facility] BRIEF OP NOTon 07-31-2020 BRIEF OP NOT HNO ID: [id number] Author: Ger Gilliland Service: Gastroenterology Author Type: Physician Type: Brief Op Note Filed: 07/31/2020 12:20 PM Note Text: BRIEF OPERATIVE NOTE PATIENT NAME: Twin Blunt LOG ID: [id number] Surgery Date: 07/31/2020 Surgeon(s) and [employer] Caser(s): Ger Gilliland MD -Primary Procedure(s): Procedure(s) (LRB): [...] July 31, 2020 TIME: 12:19 PM Normal [facility] HISTORY PHYSICALon HISTORY PHYSICAL HNO ID: [id number] Author: Ger Gilliland Service: Gastroenterology Author Type: [...] July 31, 2020 TIME: 11:43 AM Normal [facility] NURSING PROGon 07-31-2020 NURSING PROG HNO ID: [id number] Author: Audrey Minaya) ZEB Romero Service: ? [...] procedure and recommendations. Audrey Romero RN Normal [facility] NURSING PROG HNO ID: [id number] Author: Michelle (Rn) ZEB Chambers Service: ? Author Type: Registered Nurse Type: Nursing Progress Note Filed: 07/31/2020 11:58 AM Note Text: [facility] PRE-OP NURSING HAND OFF NOTE SBAR Hand off given to Lesley Ortega RN. Hand off was communicated verbally and at the patient's bedside and all questions were answered. Michelle Chambers RN Normal [facility] SURGICAL PATHOLOGYon 021 SURGICAL PATHOLOGY Specimen originated from [facility] Specimen #: [id number] Submitting Physician: GER GILLILAND MD FINAL DIAGNOSIS [...] in one cassette. Gross examination performed at [facility], [address] [place] [address] 07/31/2020 10:27:37 PM Date of Report: 08/02/2020 Date of Procedure: 07/31/2020 Date of Receipt: 07/31/2020 Submitted by: GER GILLILAND MD Location: W010 Diagnostic interpretation performed at [place] [address]. 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 Impression: family history of colon cancer 2)skilled nursing use of PPI 3)diverticulosis Plan: The patient will be scheduled for an upper endoscopy as well as a colonoscopy. Preparation for the procedures, using the Miralax ?dulcolax prep, have been explained in detail. The risks, benefits, anticipated outcomes and possible complications were mentioned, including including failure to complete the endoscopy and perforation. I explained the procedure in understandable (more content not included)... Normal [facility] Roel 07-20-2020 RODERICKN Telephone (GASTWS) TWIN BLUNT ([id number]) 1960 M Date Time Provider Department 07/20/20 GARDENIA PUENTE During your visit today, we recorded the following information about you: Luis A Gustafson LPN 07/20/2020 4:26 PM Signed Patient is scheduled at [facility] on 07/31/[address] Gilliland for a colonoscopy and EGD. DX: Family history of colon cancer in father [Z80.0] Gastroesophageal reflux disease, unspecified whether esophagitis present [K21.9] Current use of proton pump inhibitor [Z79.899] Verbal and written instructions given. [facility] SURGICAL PHONE NOTE Date of Procedure/Surgery: 07/31/20 Procedure/Surgery Type: EGD COLONOSCOPY ? SEDATION:Conscious Sedation Location of Planned Procedure/Surgery: ? [facility] Surgery/Procedure Ordered: Yes COVID Testing Required: (FOR [...] physical limitations: No Any cognitive limitations: No Jacquard Fixer/Translat or required: No Communication Limitations: No Allergies [...] father [Z80.0] Order(s):SURGICAL REQUEST - ELECTIVE (11/2019) [[id number]] Order #: [id number]: [id number] Prescriptions as of 07/20/2020 Sig: [id number] [...] LUIS A GUSTAFSON LPN on 08/02/20 Normal [facility] HISTORY PHYSICALon HISTORY PHYSICAL HNO ID: [id number] Author: Gardenia Puente Service: ? Author Type: [...] intact. Impression: family history of colon cancer 2)skilled nursing use of PPI 3)diverticulosis Plan: The patient [...] procedure at (more content not included)... Normal [facility] HOSP 07-20-2020 [facility] Patient:Twin Blunt MRN: Height:5' 11.063(1.805 m) [...] for the following basenames: K,HCT Progress Notes ([facility]): Luis A Gustafson LPN 07/20/2020 4:26 PM Signed Patient is scheduled at [facility] on 07/31/[address] Gilliland for a [...] physical limitations: No Any cognitive limitations: No Jacquard Fixer/Translat or required: No Communication Limitations: No Normal [facility] Encounters Encounter Date Encounter Type Care Provider Facility Start: 10-28-2024 ambulatory [facility] Facility: [facility] Start: 12-12-2023 Encounter for genera l adult medical examination without abnormal findings [facility] Start: 11-21-2023 End: 11-21-2023 ambulatory [facility] Facility:[facility] Start: 07-25-2022 Non-patient / Non-visit Dr. Ami Holman Work Phone: [facility] Start: 07-25-2022 End: 07-25-[address] aGto Holman Work Phone: [facility] Work Phone: Start: 07-25-2022 End: 07-25-[address] Gato Holman Work Phone: [facility] Start: 06-20-2022 End: 06-20-[address] [facility] Work Phone: Start: 06-20-2022 End: 06-20-[address] [facility]Vanessa Gar[facility] Start: 07-04-2017 End: 09-18-2017 Ambulatory MARIO SLAUGHTER Facility:B Payers Date Payer Category Payer Private Health Insurance [id number] 2023 [id number] [id number] 2017 Unknown [id number] 2012 Unknown [facility] [id number] Unknown [id number] Unknown [id number] Social History Date Type Detail Facility [facility] Work Phone: Start: 1960 Sex Assigned At Male [facility] Evaluation note Note Date & Type Note Facility Evaluation note No assessment information availa ble [facility] Work Phone: Summary Purpose Family History No [...] section and content) DATE CREATED AUTHOR 10/15/[address] [facility] ([place]) DATE CREATED AUTHOR AUTHOR'S ORGANIZ ATION 05/21/2021 [facility] DATE CREATED AUTHOR AUTHOR'S ORGANIZ ATION 10/31/2024 [facility] Care Teams (unrecognized sec tion and content) [...] BE BASED ON THE PRIMARY CLINICAL RECORDS. [facility] [employer] [facility]. provides no warranty or guarantee of the accuracy or completeness of information in this document.
[2024-11-10 12:08] LABS: Hematocrit 41.9 % (40-54); Hemoglobin 13.7 g/dL (13.0-16.5); Immature Granulocytes Count 0.000 X10^3/uL (0.0-0.0); Mean Corp Hgb Conc 32.7 g/dL (32-36); Mean Corpuscular Volume 94.8 fL (80-94); Mean Platelet Vol. 9.2 fl (6.2-12.0); NRBC Flagged by Analyzer 0 % (0-5); Platelet Count 229 K/mm3 (150-450); RBC Distribution Width CV 13.0 % (11.6-14.6); RBC Distribution Width SD 45.6 fl (35.1-43.9); Red Blood Count 4.42 M/mm3 (4.6-6.2); White Blood Count 4.8 K/mm3 (4.4-11.0)
[2024-11-10 12:50] LABS: AST(SGOT) 26 U/L (<=37); Alanine Aminotransfer ALT/SGPT 20 U/L (<=46); Albumin, Serum 4.2 g/dL (3.4-4.8); Alkaline Phosphatase 63 U/L (40-129); Anion Gap 10 (5-15); BUN 18 mg/dL (4-19); BUN/Creat Ratio 17.7 RATIO (10-20); Calcium,Total 8.9 mg/dL (7.6-11.0); Carbon Dioxide 24.9 mmol/L (21.0-32.0); Chloride 104 mmol/L (98-108); Cholesterol 183 mg/dL (<=200); Globulin 2.5 g/dL (2.2-4.2); Glucose 90 mg/dL (70-99); Low Density Lipoprotein Calc. 90 mg/dL; Potassium 4.3 mmol/L (3.3-5.1); Triglycerides 70 mg/dL; Very Low Density Lipoprotein 14 mg/dL (5-40); cholesterol:hdl ratio screen 2.33
== END | disposition home or self-care (01) ==
LOC: BFHLAB 08:37
PROVIDERS: PCP Family Medicine; Visit Provider Family Medicine
DX: Z00.00 Encounter for general adult medical examination without abnormal findings (principal); Z12.5 Encounter for screening for malignant neoplasm of prostate; E04.2 Nontoxic multinodular goiter
CPT/HCPCS: 36415; 80053; 80061; 84443; 85025

== ENCOUNTER → 2024-11-23 | Outpatient (CLI) | payer OTHER, SELFPAY ==
[2024-11-23 13:33] LABS: PSA,Total - Annual Screen 0.57 ng/mL (0.02-4.00)
== END | disposition home or self-care (01) ==
LOC: LAB.FUTURE 10:32 → BFHLAB 10:33
PROVIDERS: PCP Family Medicine; Visit Provider Family Medicine
DX: Z00.00 Encounter for general adult medical examination without abnormal findings (principal); Z12.5 Encounter for screening for malignant neoplasm of prostate; E04.2 Nontoxic multinodular goiter
CPT/HCPCS: 36415; 84153; G0103